=== PATIENT | female | born 1945 | race Caucasian/White ===

== ENCOUNTER 2020-01-16 17:18 | Emergency (ER) | payer MEDICARE, SELFPAY ==
[2020-01-16 17:53] VITALS: BP 145/74; PULSE 88; RESP 16; TEMP 36.8; O2SAT 95; BMI 16.6
[2020-01-16 18:17] LABS: Basophils # 0.1 10^3/uL (0.0-0.1); Basophils % 0.5 %; Eosinophils % 0.4 %; Hematocrit 38.7 % (37.0-47.0); Hemoglobin 11.9 g/dL (11.5-15.3); Lymphocytes # 1.9 10^3/uL (0.8-4.8); Lymphocytes % 16.8 %; Mean Corpuscular HGB Conc 30.7 g/dL (30.0-36.0); Mean Corpuscular Hemoglobin 27.2 pg (28.0-34.0); Mean Corpuscular Volume 88.6 fL (81-99); Mean Platelet Volume 10.2 fL (7.4-10.4); Monocytes # 0.6 10^3/uL (0.2-0.9); Monocytes % 5.2 %; Neutrophils # 8.8 10^3/uL (1.8-7.7); Neutrophils % 76.8 %; Nucleated Red Blood Cells % 0 %; Platelet Count 353 10^3/cmm (130-400); Red Blood Count 4.37 10^6/uL (4.1-5.3); Red Cell Distribution Width 14.8 % (12.1-15.1); White Blood Count 11.4 10^3/uL (4.0-10.0)
--- NOTE | 2020-01-16 18:27 | ED_ITS ---
Entered by Katie Mason, acting as scribe for Ankit Pope DO Jan 16, 2020 17:18 HPI - Dizziness General: Chief Complaint: Dizziness Stated Complaint: dizzy Time Seen by Provider: 01/16/20 18:36 History of Present Illness: HPI Narrative: 74 yo female presents with dizziness. Pt states that she can't stand up. Pt states that she feels like her ears get plugged up and she can't hear. Pt states that she has had this dizziness for about 1-2 weeks. Pt states that she feels tired all the time. Pts states that pt has had a change in weight and appetite. MD elicited complaint: dizziness Associated symptoms: Reports change in hearing and malaise; Denies chest pain, chills, headache(s), nausea, palpitations or vomiting Review of Systems Const: Reports: change in appetite, change in weight, fatigue and malaise; Denies: fever or chills Eyes: Denies: change in vision or blurry vision ENMT: Reports: Change in hearing; Denies: painful swallowing, nose bleeds, post nasal drip or facial/sinus pain Card: Denies: chest pain, palpitations, irregular heart rhythm or edema Resp: Denies: shortness of breath, productive cough, non-productive cough or wheezing GI: Denies: abdominal pain, nausea, vomiting or black tarry stool : Denies: painful urination, urinary frequency, urinary urgency or blood in urine Musc: Denies: neck pain Skin/Breast: Denies: rash, itching or redness Neuro: Reports: dizziness; Denies: headache or vertigo Psych: Denies: anxiety PFSH ED PFSH: Medical History (Updated 01/16/20 @ 20:14 by Ankit Pope DO) COPD (chronic obstructive pulmonary disease) Dementia GERD (gastroesophageal reflux disease) Surgical History (Updated 01/16/20 @ 18:42 by Katie Mason) History of lung surgery History of salpingo-oophorectomy Social History Smoking and tobacco status: current every day smoker Physical Exam Const: GENERAL APPEARANCE: well developed ORIENTATION/CONSCIOUSNESS: Yes oriented to person, Yes oriented to place and Yes oriented to time HENMT: COMMON NORMALS: normocephalic, external ears normal and external nose normal HEAD & SCALP: normocephalic; no scalp tenderness FACE & SINUS: normal facial exam NOSE: external nose normal and no nasal discharge EXTERNAL EAR: Yes external ears normal MOUTH: moist mucous membranes abnormal Details: parched THROAT: posterior oropharynx normal; no peritonsillar mass Eye: COMMON NORMALS: PERRL, EOMs intact bilaterally and conjunctivae normal EYELID: eyelids normal CONJUNCTIVA: Yes conjunctivae normal PUPIL: Yes PE RRL Neck/C-Spine: COMMON NORMALS: full ROM GENERAL: No tracheal deviation Chest: COMMONS NORMALS: inspection of chest normal CHEST: No tenderness Resp: COMMON NORMALS: clear to auscultation bilaterally EFFORT & INSPECTION: No tachypneic, No respiratory distress, No retractions, No uses accessory muscles and No tracheal deviation AUSCULTATION: clear to ausculta tion bilaterally, no rhonchi, no wheezes and lung sounds not diminished Cardio: COMMON NORMALS: regular rate and regular rhythm RATE: regular rate RHYTHM: regular rhythm HEART SOUNDS: no murmurs PERIPHERAL PULSES: radial pulses present GI: INSPECTION: No abdominal distension AUSCULTATION: No hyperactive bowel sounds and No hypoactive bowel sounds PALPATION: No guarding and No rigid PERCUSSION: no dullness to percussion and no tympanic to percussion Extremity: LEFT LOWER EXTREMITY: Yes lower leg Neuro: SENSORIUM/ORIENTATION: Yes oriented to person, Yes oriented to place and Yes oriented to time Psych: COMMON NORMALS: mental status grossly normal Skin: COMMON NORMALS: no rashes or lesions noted GENERAL SKIN EXAM: no rashes or lesions noted Course Vital Signs: Vital signs: Vital Signs Temperature 98.3 F 01/16/20 17:53 Pulse Rate 74 01/16/20 20:27 Respiratory Rate 18 01/16/20 20:27 Blood Pressure 162/69 01/16/20 20:27 Pulse Oximetry 98 01/16/20 20:27 MDM - Dizziness MDM Narrative: Medical decision making narrative: 74-year-old female with dizziness. Her neurological exam is essentially normal. Her CT of the head is normal. Chest x-ray is free of infiltrate. Her white blood cell count is 11.4. Other laboratory is benign. She is feeling better after IV fluid. This is likely BPPV with concomitant mild dehydration. She will be prescribed meclizine and told to follow-up. Lab Data: Labs: Lab Results 01/16/20 01/16/20 01/16/20 Range/Units 18:10 18:10 18:10 WBC 11.4 H (4.0-10.0) 10^3/ uL RBC 4.37 (4.1-5.3) 10^6/u L Hgb 11.9 (11.5-15.3) g/dL Hct 38.7 (37.0-47.0) % MCV 88.6 (81-99) fL MCH 27.2 L (28.0-34.0) pg MCHC 30.7 (30.0-36.0) g/dL RDW 14.8 (12.1-15.1) % Plt Count 353 (130-400) 10^3/c mm MPV 10.2 (7.4-10.4) fL Neut % (Auto) 76.8 % Lymph % (Auto) 16.8 % Reagan % (Auto) 5.2 % Eos % (Auto) 0.4 % Baso % (Auto) 0.5 % Neut # (Auto) 8.8 H (1.8-7.7) 10^3/u L Lymph # (Auto) 1.9 (0.8-4.8) 10^3/u L [place] # (Auto) 0.6 (0.2-0.9) 10^3/u L Eos # (Auto) 0.0 (0.0-0.8) 10^3/u L Baso # (Auto) 0.1 (0.0-0.1) 10^3/u L Nucleated RBC % (a uto) 0 % Nucleated RBCs # 0.0 /100WBC Sodium 134 L (136-145) mmol/L Potassium 4.5 (3.5-5.1) mmol/L Chloride 94 L (98-107) mmol/L Carbon Dioxide 29 (22-29) mmol/L Anion Gap 15.5 (5-19) BUN 18 (8-23) mg/dL Creatinine 0.9 (0.5-0.9) mg/dL Glucose 116 H (65-115) mg/dL Calculated Osmolal ity 275 L (285-295) mOsm/k g Calcium 10.3 (8.5-10.5) mg/dL Total Bilirubin 0.4 (0.15-1.2) mg/dL AST 21 (0-32) U/L ALT 9 (0-33) U/L Alkaline Phosphata se 103 (35-105) IU/L Creatine Kinase 38 (26-192) U/L Troponin T Gen 5 n g/L (0-10) ng/mL Total Protein 8.8 H (6.6-8.7) g/dL Albumin 3.8 (3.5-5.2) g/dL Globulin 5.0 H (1.3-4.6) g/dL Urine Color (Yellow) Urine Appearance (CLEAR) Urine pH (5-7) Ur Specific Gravit y (1.005-1.030) Urine Protein (Negative) Urine Glucose (UA) (Normal) Urine Ketones (Negative) Urine Blood (Negative) Urine Nitrate (Negative) Urine Bilirubin (NEGATIVE) Urine Urobilinogen (Negative) mg/dL Ur Leukocyte Candis ase (Negative) Urine RBC (0-2) /hpf Urine WBC (0-5) /hpf Ur Squamous Epith Cells (0-5) Urine Bacteria (NONE) Urine Mucus 01/16/20 01/16/20 Range/Units 18:10 18:48 WBC (4.0-10.0) 10^3/ uL RBC (4.1-5.3) 10^6/u L Hgb (11.5-15.3) g/dL Hct (37.0-47.0) % MCV (81-99) fL MCH (28.0-34.0) pg MCHC (30.0-36.0) g/dL RDW (12.1-15.1) % Plt Count (130-400) 10^3/c mm MPV (7.4-10.4) fL Neut % (Auto) % Lymph % (Auto) % Reagan % (Auto) % Eos % (Auto) % Baso % (Auto) % Neut # (Auto) (1.8-7.7) 10^3/u L Lymph # (Auto) (0.8-4.8) 10^3/u L Reagan # (Auto) (0.2-0.9) 10^3/u L Eos # (Auto) (0.0-0.8) 10^3/u L Baso # (Auto) (0.0-0.1) 10^3/u L Nucleated RBC % (a uto) % Nucleated RBCs # /100WBC Sodium (136-145) mmol/L Potassium (3.5-5.1) mmol/L Chloride (98-107) mmol/L Carbon Dioxide (22-29) mmol/L Anion Gap (5-19) BUN (8-23) mg/dL Creatinine (0.5-0.9) mg/dL Glucose (65-115) mg/dL Calculated Osmolal ity (285-295) mOsm/k g Calcium (8.5-10.5) mg/dL Total Bilirubin (0.15-1.2) mg/dL AST (0-32) U/L ALT (0-33) U/L Alkaline Phosphata se (35-105) IU/L Creatine Kinase (26-192) U/L Troponin T Gen 5 n g/L 10 (0-10) ng/mL Total Protein (6.6-8.7) g/dL Albumin (3.5-5.2) g/dL Globulin (1.3-4.6) g/dL Urine Color Yellow (Yellow) Urine Appearance Clear (CLEAR) Urine pH 7 (5-7) Ur Specific Gravit y 1.010 (1.005-1.030) Urine Protein Neg (Negative) Urine Glucose (UA) Norm (Normal) Urine Ketones Negative (Negative) Urine Blood Neg (Negative) Urine Nitrate Negative (Negative) Urine Bilirubin Neg (NEGATIVE) Urine Urobilinogen Norm (Negative) mg/dL Ur Leukocyte Candis ase Trace H (Negative) Urine RBC None (0-2) /hpf Urine WBC 10-15 H (0-5) /hpf Ur Squamous Epith Cells 0-4 H (0-5) Urine Bacteria Trace (NONE) Urine Mucus 1+ Discharge Plan Discharge Patient Disposition: Home, Self-Care Clinical Impression: Benign paroxysmal positional vertigo Qualifiers: Laterality: unspecified laterality Qualified Code(s): H81.10 - Benign paroxysmal vertigo, unspecified ear Condition: Stable Prescriptions: New meclizine 25 mg tablet 25 mg PO BID Qty: 60 RF: 0 No Action Tylenol 325 mg Tablet 325 mg PO QID PRN (Reason: Pain) RF: 0 Vitamin D2 1,250 mcg (50,000 unit) capsule 1,250 mcg PO DAILY RF: 0 Discharge Orders: Discharge Order (Routine); Ordered 01/16/20 Ordered By: Ankit Pope Referrals: Yazmin Oshea, PLATE COL[facility]ER-C [Primary Care Provider] - Discharge Diet: Advance as tolerated Discharge Activity: Increase activity as tolerated Patient Instructions: Benign Paroxysmal Positional Vertigo (ED), Dizziness (ED) Activity Restrictions/Additional Instructions: Return for mental status changes, fever, worsening symptoms despite treatment, other concerning symptoms. Discharge Date/Time: 01/16/20 20:37 Coding Level of Care Code ED Stablehand for Chg Fwd Exam Comprehensive The documentation recorded by the Marlon pinon Kialy, accurately reflects the service I personally performed and the decisions made by Niko gu Jeremy John, DO Jan 16, 2020 17:18
[2020-01-16 18:35] LABS: Alanine Aminotransferase 9 U/L (0-33); Albumin Level 3.8 g/dL (3.5-5.2); Alkaline Phosphatase 103 IU/L (35-105); Anion Gap 15.5 (5-19); Aspartate Amino Transferase 21 U/L (0-32); Blood Urea Nitrogen 18 mg/dL (8-23); Calcium 10.3 mg/dL (8.5-10.5); Carbon Dioxide 29 mmol/L (22-29); Chloride 94 mmol/L (98-107); Glucose 116 mg/dL (65-115); Osmolality Calculated 275 mOsm/kg (285-295); Potassium 4.5 mmol/L (3.5-5.1); Sodium 134 mmol/L (136-145); Total Bilirubin 0.4 mg/dL (0.15-1.2); Total Protein 8.8 g/dL (6.6-8.7)
--- NOTE | 2020-01-16 18:53 | XRR_ITS ---
PROCEDURE INFORMATION: Exam: XR Chest, 1 View Exam date and time: 01/16/2020 7:20 PM Age: 74 years old Clinical indication: Other: Dizzy TECHNIQUE: Imaging protocol: XR of the chest Views: 1 view. COMPARISON: CR Chest 1 [place] [id number] 03/13/2016 6:20 PM FINDINGS: Lungs: Advanced COPD/chronic bronchitis/emphysema. Evidence of antecedent granulomatous disease. Right upper lobe scar atelectasis. Surgical clips left lung apex. Pleural space: Unremarkable. No pleural effusion. No pneumothorax. Heart/Mediastinum: Cardiac structures in configuration with arterial sclerosis. Bones/joints: Levo scoliotic curvature of the spine. Osteopenia/osteoporosis. Other findings: No significant overall change since 03/13/2016. XR/XR chest 1V portable [id number] IMPRESSION: 1. Chronic lung disease as detailed in text above. 2. No radiographic evidence of active or acute cardiopulmonary process.
--- NOTE | 2020-01-16 18:53 | CTR_ITS ---
PROCEDURE INFORMATION: Exam: CT Head Without Contrast Exam date and time: 01/16/2020 6:59 PM Age: 74 years old Clinical indication: Patient HX: C/O intermittent episodes of dizziness; Additional info: Dizzy TECHNIQUE: Imaging protocol: Computed tomography of the head without contrast. Total DLP: 690.22 mGy-cm Radiation optimization: All CT scans at this facility use at least one of these dose optimization techniques: automated exposure control; mA and/or kV adjustment per patient size (includes targeted exams where dose is matched to clinical indication); or iterative reconstruction. COMPARISON: CT head wo con* [id number] 03/13/2016 6:28 PM FINDINGS: Brain: No visible evidence of active or acute intracranial pathologic process. Ventricles: Unremarkable for age. No ventriculomegaly. Bones/joints: Unremarkable. No acute fracture. Sinuses: Evidence of chronic right sphenoid sinusitis. No visible air-fluid level to suggest active paranasal sinus disease, however. Mastoid air cells: Visualized mastoid air cells are well aerated. Soft tissues: Unremarkable. Vasculature: Mild cerebral arterial sclerosis. CT/CT head wo con* [id number] IMPRESSION: No visible evidence of active or acute intracranial pathologic process. Radiation Dose CTDIVOL = (mGy): DLP = 690.22 (mGy-cm)
[2020-01-16 19:05] LABS: Add Urine Microscopic? YES; Bilirubin Urine Neg (NEGATIVE); Blood Urine Neg (Negative); Glucose Urine UA Norm (Normal); Ketones Urine Negative (Negative); Leukocyte Esterase Urine Trace (Negative); Nitrate Urine Negative (Negative); Protein Urine Neg (Negative); Urine Appearance Clear (CLEAR); Urine Color Yellow (Yellow); Urobilinogen Urine Norm (Negative); pH Urine 7 (5-7)
[2020-01-16 19:08] LABS: Bacteria Urine TRACE; Mucus Urine 1+; Squamous Epithelial Cell Urine 0-4 (0-5)
[2020-01-16 19:09] LABS: Add Urine Culture? No
[2020-01-16] MEDS: sodium chloride 0.9% 1,000 ML 999 ML IV (19:31)
[2020-01-16 19:48] LABS: Creatine Phosphokinase 38 U/L (26-192)
[2020-01-16 19:49] LABS: Troponin T (5th) Once 10 ng/mL (0-10)
[2020-01-16] MEDS: meclizine 25 mg tablet PO (20:18)
[2020-01-16 20:27] VITALS: BP 162/69; PULSE 74; RESP 18; O2SAT 98
== END 2020-01-16 20:37 | disposition home or self-care (01) ==
PROVIDERS: Emergency Medicine; Emergency Provider Emergency Medicine; Family Provider Nurse Practitioner; PCP Nurse Practitioner
DX: H81.10 Benign paroxysmal vertigo, unspecified ear (principal); J44.9 Chronic obstructive pulmonary disease, unspecified; F03.90 Unspecified dementia, unspecified severity, without behavioral disturbance, psychotic disturbance, mood disturbance, and anxiety; F17.200 Nicotine dependence, unspecified, uncomplicated
CPT/HCPCS: 12345; 70450; 71045; 80053; 81001; 82550; 84484; 85025; 96360; 99281; 99282; 99283; A9270; J7030; J8597

== ENCOUNTER 2020-05-01 11:56 | Observation (INO) | payer MEDICARE, SELFPAY ==
[2020-05-01] VITALS (10 sets, daily range): BP systolic 103–152; BP diastolic 66–84; PULSE 60–134; RESP 12–20; TEMP 36.4–36.6; O2SAT 94–98; BMI 15.0
--- NOTE | 2020-05-01 12:26 | W.ED.DIZZY ---
HPI - Dizziness General: Chief Complaint: Dizziness Stated Complaint: DIZZY, CHEST PAIN Time Seen by Provider: 05/01/20 12:15 History of Present Illness: HPI Narrative: 74-year-old female some moderate dementia comes in complaining some chest pressure and arm pain she had it earlier this morning is completely resolved now said it radiated into her arms not into her neck or jaw she was shortness of breath had some shortness of breath with it. In the exam room she is has bigeminy but is a heart rate in the 60s by palpation the monitor showing 120s 130s. She denies any or GI symptoms no abdominal pain she is not having any further chest pain at this time. She has a history of COPD she states she quit smoking today and is going to stay quit. Her daughters at the bedside assisting with her because of her dementia. MD elicited complaint: dizziness, lightheadedness and other (chest pain) Severity: moderate Exacerbating factors: nothing Relieving factors: nothing Associated symptoms: Reports no associated symptoms, chest pain, diaphoresis, fevers/chills and palpitations; Denies change in hearing, chills, cough, ear discharge, ear pressure, nausea or vomiting Associated neuro symptoms: Reports no associated symptoms Review of Systems Const: Reports: diaphoresis; Denies: chills ENMT: Denies: ear discharge or change in hearing Card: Reports: chest pain and palpitations Resp: Denies: dyspnea, productive cough or non-productive cough GI: Denies: abdominal pain, nausea, vomiting, hematemesis, coffee ground emesis, diarrhea, constipation, bloating, hematochezia or melena : Denies: flank pain, difficulty voiding, dysuria, urinary frequency or urinary urgency Skin/Breast: Denies: rash or pruritus PFSH ED PFSH: Medical History COPD (chronic obstructive pulmonary disease) Dementia GERD (gastroesophageal reflux disease) Tobacco dependency Surgical History History of lung surgery History of salpingo-oophorectomy Social History Smoking and tobacco status: current every day smoker cigarettes Packs smoked per day: 0.5 Years cigarettes smoked: 60 Alcohol intake: never Substance/Drug Use: never Lives independently: Yes Household members: spouse Marital status: Current occupational status: retired History of recent travel: No Current gender identity: Female Special ngai needs: No Agree to transfusion: Yes Physical Exam Const: COMMON NORMALS: no acute distress GENERAL APPEARANCE: cooperative and comfortable ORIENTATION/CONSCIOUSNESS: Yes awake HENMT: COMMON NORMALS: normocephalic, atraumatic, hearing grossly normal bilaterally, external ears normal, EAC's normal, TM's normal bilaterally, Normal nasal mucous membranes and turbinates present, moist oral mucous membranes and oropharynx normal HEAD & SCALP: normocephalic and atraumatic NOSE: Normal nasal mucous membranes and turbinates present EXTERNAL EAR: Yes external ears normal EXTERNAL AUDITORY CANAL: EAC's normal TYMPANIC MEMBRANE: TM's normal bilaterally Eye: COMMON NORMALS: Equal, round and reactive pupils present, EOMs intact bilaterally, conjunctivae normal and no scleral icterus CONJUNCTIVA: Yes conjunctivae normal PUPIL: Yes Equal, round and reactive pupils present Neck/C-Spine: COMMON NORMALS: full ROM, no lymphadenopathy, supple and no JVD Lymph: LYMPHATIC: no lymphadenopathy noted and no lymphedema noted Resp: COMMON NORMALS: normal respiratory effort, No retractions and No use of accessory muscles AUSCULTATION: wheezes and bronchovesicular breath sounds (Bilaterally at the bases) on the right and on the left Cardio: COMMON NORMALS: no JVD, regular rate, regular rhythm and No murmurs present (Cardio) RATE: regular rate RHYTHM: regular rhythm OTHER: Noted that on the vital signs of record heart rates in the 120s however when palpated at the bedside her heart rate is actually in the 60s and 70s she is intermittently in bigeminy and the monitor was reading it is to QRS complexes and doubling the heart rate GI: COMMON NORMALS: Soft to palpation and No hepatosplenomegaly present AUSCULTATION: Yes normoactive bowel sounds PALPATION: Yes Soft to palpation, No Tenderness to palpation present (GI), No Guarding due to palpation present (GI) and Yes No hepatosplenomegaly present Extremity: COMMON NORMALS: normal to inspection, capillary refill normal, no clubbing, cyanosis or edema, no calf tenderness and no pedal edema Skin: COMMON NORMALS: no rashes or lesions noted GENERAL SKIN EXAM: no rashes or lesions noted Course Vital Signs: Vital signs: Vital Signs Temperature 97.8 F 05/01/20 11:57 Pulse Rate 95 05/01/20 17:42 Respiratory Rate 17 05/01/20 17:42 Blood Pressure 152/66 05/01/20 17:42 Pulse Oximetry 96 05/01/20 17:42 MDM - Dizziness MDM Narrative: Medical decision making narrative: CT shows multilobar pneumonia in her dementia patient with COPD and not believe she is safe to go home despite her relatively good vitals and normal white count. Suspect her pneumonia will worsen significantly. We will also swab her for Kovic discussed with Dr. Carlos. Lab Data: Attestation: I reviewed the patient's lab results. Labs: Lab Results 05/01/20 05/01/20 05/01/20 Range/Units 13:18 13:18 13:18 WBC 8.8 (4.0-10.0) 10^3/ uL RBC 3.84 L (4.1-5.3) 10^6/u L Hgb 10.9 L (11.5-15.3) g/dL Hct 35.9 L (37.0-47.0) % MCV 93.5 (81-99) fL MCH 28.4 (28.0-34.0) pg MCHC 30.4 (30.0-36.0) g/dL RDW 14.7 (12.1-15.1) % Plt Count 331 (130-400) 10^3/c mm MPV 9.8 (7.4-10.4) fL Neut % (Auto) 71.6 % Lymph % (Auto) 18.9 % [place] % (Auto) 7.6 % Eos % (Auto) 0.6 % Baso % (Auto) 0.7 % Neut # (Auto) 6.3 (1.8-7.7) 10^3/u L Lymph # (Auto) 1.7 (0.8-4.8) 10^3/u L [place] # (Auto) 0.7 (0.2-0.9) 10^3/u L Eos # (Auto) 0.1 (0.0-0.8) 10^3/u L Baso # (Auto) 0.1 (0.0-0.1) 10^3/u L Nucleated RBC % (a uto) 0 % Nucleated RBCs # 0.0 /100WBC Sodium 138 (136-145) mmol/L Potassium 4.9 (3.5-5.1) mmol/L Chloride 99 (98-107) mmol/L Carbon Dioxide 28 (22-29) mmol/L Anion Gap 15.9 (5-19) BUN 14 (8-23) mg/dL Creatinine 0.7 (0.5-0.9) mg/dL Glucose 98 (65-115) mg/dL Calculated Osmolal ity 282 L (285-295) mOsm/k g Calcium 9.2 (8.5-10.5) mg/dL Total Bilirubin 0.3 (0.15-1.2) mg/dL AST 20 (0-32) U/L ALT 7 (0-33) U/L Alkaline Phosphata se 91 (35-105) IU/L Troponin T Baselin e 9 (0-10) ng/L Troponin T 120 Min santhosh (0-10) ng/L Delta Troponin T (0-10) ABS# Total Protein 6.8 (6.6-8.7) g/dL Albumin 3.2 L (3.5-5.2) g/dL Globulin 3.6 (1.3-4.6) g/dL Urine Color (Yellow) Urine Appearance (CLEAR) Urine pH (5-7) Ur Specific Gravit y (1.005-1.030) Urine Protein (Negative) Urine Glucose (UA) (Normal) Urine Ketones (Negative) Urine Blood (Negative) Urine Nitrate (Negative) Urine Bilirubin (NEGATIVE) Urine Urobilinogen (Negative) mg/dL Ur Leukocyte Candis ase (Negative) 05/01/20 05/01/20 Range/Units 14:16 15:22 WBC (4.0-10.0) 10^3/ uL RBC (4.1-5.3) 10^6/u L Hgb (11.5-15.3) g/dL Hct (37.0-47.0) % MCV (81-99) fL MCH (28.0-34.0) pg MCHC (30.0-36.0) g/dL RDW (12.1-15.1) % Plt Count (130-400) 10^3/c mm MPV (7.4-10.4) fL Neut % (Auto) % Lymph % (Auto) % [place] % (Auto) % Eos % (Auto) % Baso % (Auto) % Neut # (Auto) (1.8-7.7) 10^3/u L Lymph # (Auto) (0.8-4.8) 10^3/u L [place] # (Auto) (0.2-0.9) 10^3/u L Eos # (Auto) (0.0-0.8) 10^3/u L Baso # (Auto) (0.0-0.1) 10^3/u L Nucleated RBC % (a uto) % Nucleated RBCs # /100WBC Sodium (136-145) mmol/L Potassium (3.5-5.1) mmol/L Chloride (98-107) mmol/L Carbon Dioxide (22-29) mmol/L Anion Gap (5-19) BUN (8-23) mg/dL Creatinine (0.5-0.9) mg/dL Glucose (65-115) mg/dL Calculated Osmolal ity (285-295) mOsm/k g Calcium (8.5-10.5) mg/dL Total Bilirubin (0.15-1.2) mg/dL AST (0-32) U/L ALT (0-33) U/L Alkaline Phosphata se (35-105) IU/L Troponin T Baselin e (0-10) ng/L Troponin T 120 Min santhosh 8.90 (0-10) ng/L Delta Troponin T -0.10 L (0-10) ABS# Total Protein (6.6-8.7) g/dL Albumin (3.5-5.2) g/dL Globulin (1.3-4.6) g/dL Urine Color Yellow (Yellow) Urine Appearance Clear (CLEAR) Urine pH 7 (5-7) Ur Specific Gravit y 1.015 (1.005-1.030) Urine Protein Neg (Negative) Urine Glucose (UA) Norm (Normal) Urine Ketones Negative (Negative) Urine Blood Neg (Negative) Urine Nitrate Negative (Negative) Urine Bilirubin Neg (NEGATIVE) Urine Urobilinogen Neg (Negative) mg/dL Ur Leukocyte Candis ase Negative (Negative) Discharge Plan Discharge Patient Disposition: Admitted As Inpatient Admit Provider: Bony Carlos Clinical Impression: Pneumonia, COPD (chronic obstructive pulmonary disease), Dementia Condition: Stable Interventions: ED Discharge Assessment Last Done: 05/01/20 17:42 ED Charges Last Done: 05/01/20 17:42 Coding Level of Care Code ED Ski Binding Fitter And Repairer for Chg Fwd Exam Comprehensive
--- NOTE | 2020-05-01 12:30 | ECG_ITS ---
[facility] Test Date: 2020-05-01 Pat Name: Hina Gomez Department: Room: Gender: Female Manager Skilled: : 1945 Requested By: Kade Feldman Order Number: [id number] Luis Felipe MD: Karis Perez M.D. Measurements Intervals [place] Rate: 66 P: 73 WV: 168 QRS: -52 QRSD: 126 T: 95 QT: 446 QTc: 469 Interpretive Statements SINUS RHYTHM POSSIBLE LEFT ATRIAL ENLARGEMENT [-0.1mV P WAVE IN V1/V2] LEFT AXIS DEVIATION [QRS AXIS < -30] LEFT BUNDLE BRANCH BLOCK Compared to ECG 03/13/2016 17:50:21 Left-axis deviation now present Left bundle-branch block now present Intraventricular conduction delay no longer present Myocardial infarct finding no longer present Electronically Signed On 05-01-2020 18:27:21 CDT by Karis Perez M.D. [id number]
--- NOTE | 2020-05-01 12:31 | XRR_ITS ---
PROCEDURE INFORMATION: Exam: XR Chest, 1 View Exam date and time: 05/01/2020 12:32 PM Age: 74 years old Clinical indication: Cough and dyspnea; Additional info: Dyspnea/cough TECHNIQUE: Imaging protocol: XR of the chest Views: 1 view. COMPARISON: No relevant prior studies available. FINDINGS: Lungs: Emphysema Coarse interstitial pattern in the mid lungs bilaterally. Somewhat reticular nodular nature. Opacity right mid lung laterally. Correlate with CT chest. Pleural space: Unremarkable. No pleural effusion. No pneumothorax. Heart/Mediastinum: Unremarkable. No cardiomegaly. Bones/joints: Unremarkable. XR/XR chest 1V portable [id number] IMPRESSION: Coarse interstitial pattern in the mid lungs bilaterally. Somewhat reticular nodular nature. Opacity right mid lung laterally. Correlate with CT chest. Severe emphysema
--- NOTE | 2020-05-01 12:40 | ECG_ITS ---
[facility] Test Date: 2020-05-01 Pat Name: Hian Gomez Department: Room: Gender: Female Riprap Worker: : 1945 Requested By: Kade Feldman Order Number: [id number] Luis Felipe MD: Karis Perez M.D. Measurements Intervals [place] Rate: 66 P: 73 AR: 168 QRS: -52 QRSD: 126 T: 95 QT: 446 QTc: 469 Interpretive Statements SINUS RHYTHM POSSIBLE LEFT ATRIAL ENLARGEMENT [-0.1mV P WAVE IN V1/V2] LEFT AXIS DEVIATION [QRS AXIS < -30] LEFT BUNDLE BRANCH BLOCK [120+ ms QRS DURATION, 80+ ms Q/S IN V1/V2, 85+ ms R IN I/aVL/V5/V6] Compared to ECG 03/13/2016 17:50:21 Left-axis deviation now present Left bundle-branch block now present Intraventricular conduction delay no longer present Myocardial infarct finding no longer present Electronically Signed On 05-01-2020 18:27:45 CDT by Karis Perez M.D. [id number]
[2020-05-01 13:24] LABS: Basophils # 0.1 10^3/uL (0.0-0.1); Basophils % 0.7 %; Eosinophils # 0.1 10^3/uL (0.0-0.8); Eosinophils % 0.6 %; Hematocrit 35.9 % (37.0-47.0); Hemoglobin 10.9 g/dL (11.5-15.3); Lymphocytes # 1.7 10^3/uL (0.8-4.8); Lymphocytes % 18.9 %; Mean Corpuscular HGB Conc 30.4 g/dL (30.0-36.0); Mean Corpuscular Hemoglobin 28.4 pg (28.0-34.0); Mean Corpuscular Volume 93.5 fL (81-99); Mean Platelet Volume 9.8 fL (7.4-10.4); Monocytes # 0.7 10^3/uL (0.2-0.9); Monocytes % 7.6 %; Neutrophils # 6.3 10^3/uL (1.8-7.7); Neutrophils % 71.6 %; Nucleated Red Blood Cells % 0 %; Platelet Count 331 10^3/cmm (130-400); Red Blood Count 3.84 10^6/uL (4.1-5.3); Red Cell Distribution Width 14.7 % (12.1-15.1); White Blood Count 8.8 10^3/uL (4.0-10.0)
[2020-05-01 13:41] LABS: Alanine Aminotransferase 7 U/L (0-33); Albumin Level 3.2 g/dL (3.5-5.2); Alkaline Phosphatase 91 IU/L (35-105); Anion Gap 15.9 (5-19); Blood Urea Nitrogen 14 mg/dL (8-23); Calcium 9.2 mg/dL (8.5-10.5); Carbon Dioxide 28 mmol/L (22-29); Chloride 99 mmol/L (98-107); Creatinine Clr Calc Pharmacy 39.1575; Globulin 3.6 g/dL (1.3-4.6); Glucose 98 mg/dL (65-115); Osmolality Calculated 282 mOsm/kg (285-295); Potassium 4.9 mmol/L (3.5-5.1); Sodium 138 mmol/L (136-145); Total Bilirubin 0.3 mg/dL (0.15-1.2); Total Protein 6.8 g/dL (6.6-8.7); Troponin(5th) Baseline 9 ng/L (0-10)
[2020-05-01 13:50] LABS: Aspartate Amino Transferase 20 U/L (0-32)
--- NOTE | 2020-05-01 14:28 | CT_ITS ---
WS: [id number] CT CHEST ANGIOGRAPHY WITH REFORMATS HISTORY: dyspnea TECHNIQUE: Contiguous axial images are obtained through the chest during arterial injection of intrav enous contrast. Images are reconstructed to evaluate the pulmonary arteries. MIP imaging also reviewe d. All CT scans at [facility] use at least one of these dose optimization techniques: aut omated exposure control; mA and/or kV adjustment per patient size (includes targeted exams where dose is matched to clinical indication); or iterative reconstruction. CONTRAST: Omnipaque 300; 75 mL IV. DLP: 329.47 mGy.cm COMPARISON: 08/12/2012 Very good opacification of the pulmonary arteries. No filling defects or pulmonary embolism. Moderate atherosclerosis aorta. Severe emphysema. Significant progression of bilateral pulmonary opacifications and consolidations. T here is significant tree-in-bud opacification with areas of subsegmental atelectasis involving all lo bes. There are areas of consolidation and groundglass attenuation. No pericardial or pleural effusion . Extensive mediastinal and hilar adenopathy. The largest lymph nodes at the RIGHT hilum with a maxim um diameter of 18 mm. Small hiatal hernia. Incompletely visualized large LEFT renal cyst. CT/CT angio chest PE protcl [id number] IMPRESSION: 1. No pulmonary embolism. 2. Multifocal, multi lobar opacifications are likely pneumonia. Underlying javier plasm cannot be excluded. There are additional areas of atelectasis with severe emphysema. After patient's acute illness resolves follow-up CT is recommended in 4-6 weeks to be sure there is no underlying neoplasm. 3. Mediastinal and hilar lymphadenopathy is probably reactive.
[2020-05-01 14:39] LABS: Add Urine Microscopic? NO
--- NOTE | 2020-05-01 14:40 | ECG_ITS ---
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 Measurements Intervals [place] Rate: 54 P: 56 TX: 174 QRS: -26 QRSD: 135 T: 97 QT: 487 QTc: 464 Interpretive Statements SINUS BRADYCARDIA INTRAVENTRICULAR CONDUCTION DELAY [130+ ms QRS DURATION] Compared to ECG 05/01/2020 12:14:02 Intraventricular conduction delay now present Sinus rhythm no longer present Left-axis deviation no longer present Left bundle-branch block no longer present Electronically Signed On 05-01-2020 18:55:38 CDT by Karis Perez M.D. [id number]
[2020-05-01 14:42] LABS: Bilirubin Urine Neg (NEGATIVE); Blood Urine Neg (Negative); Glucose Urine UA Norm (Normal); Ketones Urine Negative (Negative); Nitrate Urine Negative (Negative); Protein Urine Neg (Negative); Specific Gravity, Urine 1.015 (1.005-1.030); Urine Appearance Clear (CLEAR); Urine Color Yellow (Yellow); pH Urine 7 (5-7)
[2020-05-01 14:43] LABS: Leukocyte Esterase Urine Negative (Negative); Urobilinogen Urine Neg (Negative)
[2020-05-01] MEDS: iohexol 350 mg/mL 100 mL Btl IV (15:00)
[2020-05-01] MEDS: cefTRIAXone 1,000 MG in sodium chloride 0.9% (plus) 50 ML 100 MG IV (16:13)
[2020-05-01] MEDS: azithromycin 500 MG in sodium chloride 0.9% 250 ML 250 MG IV (16:24)
--- NOTE | 2020-05-01 17:20 | PM.HP ---
Providers/Chief Complaint Admitting Physician: Bony Carlos MD Primary Care Provider: HE Rangel Chief Complaint: DIZZY, CHEST PAIN History of Present Illness Hina Gomez is a 74 year old female who presents to the emergency department with history of some dizziness. She reports occasional cough. There is some notes of some chest discomfort as well and apparently in the emergency department she had some bigeminy. EKG she demonstrated intraventricular conduction delay. History is difficult secondary to her underlying dementia. I called to talk with her family, but none of the numbers connect at this time. She specifically denies any fever. I am not for sure if she has had exposure to any COVID. No hemoptysis or productivity to her cough. L Review of Systems General: Reports: 10 or more systems reviewed and unremarkable except in HPI and below Const: Denies: fever(s) or chills Eyes: Denies: change in vision ENMT: Denies: throat pain Card: Reports: chest pain Resp: Reports: non-productive cough; Denies: dyspnea GI: Denies: abdominal pain : Denies: flank pain Musc: Denies: neck pain Skin/Breast: Denies: rash Neuro: Reports: dizziness and other (Longstanding memory problems); Denies: headache(s) Psych: Denies: anxiety Endo: Denies: polyuria Alonzo/Lymph: Denies: easy bruising All/Imm: Denies: urticaria Medications/Allergies Home Medications Medication Instructions Recorded Confirmed Last Taken Type donepezil 10 mg PO DAILY 05/01/20 05/01/20 05/01/20 History meclizine 25 mg PO BID PRN 05/01/20 05/01/20 05/01/20 History Allergies Allergy/AdvReac Type Severity Reaction Status Date / Time No Known Allergies Allergy Verified 05/01/20 08:14 PFSH Acute PFSH: Medical History (Updated 05/01/20 @ 17:28 by Bony Carlos MD) COPD (chronic obstructive pulmonary disease) Dementia GERD (gastroesophageal reflux disease) Tobacco dependency Surgical History History of lung surgery History of salpingo-oophorectomy Social History (Updated 05/01/20 @ 17:24 by Bony Carlos MD) Smoking and tobacco status: current every day smoker cigarettes Packs smoked per day: 0.5 Years cigarettes smoked: 60 Alcohol intake: never Substance/Drug Use: never Lives independently: Yes Household members: spouse Marital status: Current occupational status: retired History of recent travel: No Current gender identity: Female Special nagi needs: No Agree to transfusion: Yes Supplemental [facility] Information: Patient reports no significant family history. Vitals/I&O/Wt Last Vital Signs Temp 97.8 F 05/01/20 11:57 Pulse 60 05/01/20 16:26 Resp 19 H 05/01/20 16:26 BP 130/72 05/01/20 16:26 Pulse Ox 97 05/01/20 16:26 05/01/20 05/01/20 05/01/20 06:59 14:59 22:59 Intake Total 50 / 50 Balance 50 / 50 Weight last 48 hrs Weight 40.823 kg Physical Exam Narrative: EXAM NARRATIVE: General exam demonstrates a white female, in no apparent distress. She reports the dizziness she has had has passed. HEENT: Pupils equally round. Oropharynx clear. Neck is supple no lymphadenopathy or thyromegaly Cardiovascular regular rate and rhythm, 2/6 systolic murmur Lungs a few expiratory wheezes, and coarse breath sounds throughout. Abdomen is soft positive bowel sounds. No obvious organomegaly was deferred Extremities no cyanosis clubbing or edema. Pulses intact. Skin no rash Neuro no focal deficits but confusion is present. Patient is able to carry on a conversation, but cannot remember occasional things. From my understanding this is baseline. Data : 05/01/20 13:18 05/01/20 13:18 Other data: EKG demonstrates sinus bradycardia with a heart rate of 54, intraventricular conduction delay, poor R wave progression LFTs are normal. Urinalysis is negative. Troponin is normal at baseline. A&P Assessment and plan (1) Dizziness: Etiology uncertain. Apparently patient has had this chronically and takes meclizine for it on occasion. She denies any dizziness now. In the emergency department she has an interventricular conduction delay, and some bradycardia on her EKG. They have also witnessed some bigeminy. Continue telemetry Serial troponins Echocardiogram Avoid beta-blockers or any rate controlling medications Check TSH Check magnesium Status: Acute (2) Bradycardia: See above Status: Acute (3) Pneumonia: Levaquin IV Sputum culture Many of the changes on her x-ray may be chronic Check procalcitonin COVID and influenza testing obtained Status: Acute (4) COPD exacerbation: At this point I do not believe she needs steroids Nebulized treatments every 4 hours Initiate budesonide Status: Acute (5) Tobacco dependency: Encourage cessation, for 3 to 5 minutes during my visit with her Status: Acute (6) Anemia: Check anemia panel, stool Hemoccult Monitor hemoglobin closely Status: Acute Additional A&P Information Dementia, continue her home medication History of GERD Multiple other medical problems as outlined in her past medical history Observation. If all testing is negative high likelihood of discharge home tomorrow Lovenox for DVT prophylaxis Full code Attestations Medical Necessity Statement*: Will need less than 2 midnight stay for evaluation of possible pneumonia, dizziness, cardiac arrhythmia Coding Level of Care Code Acute Administrative Receptionist for [facility] Fwd Diagnoses Dizziness R42 Bradycardia R00.1 Pneumonia J18.9 COPD exacerbation J44.1 Tobacco dependency F17.200 Anemia D64.9
--- NOTE | 2020-05-01 17:35 | PC.NURSE ---
COVID swab collected and sent to lab at this time.
--- NOTE | 2020-05-01 18:40 | ECG_ITS ---
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 Measurements Intervals [place] Rate: 72 P: 69 MO: 182 QRS: -48 QRSD: 132 T: 104 QT: 440 QTc: 484 Interpretive Statements SINUS RHYTHM WITH SINUS ARRHYTHMIA INTRAVENTRICULAR CONDUCTION DELAY [130+ ms QRS DURATION] POSSIBLE ANTERIOR MYOCARDIAL INFARCTION [30 ms Q WAVE IN V3/V4, OR R < 0.2 mV IN V4], OF INDETERMINATE AGE INFERIOR MYOCARDIAL INFARCTION [40+ ms Q WAVE AND/OR ST/T ABNORMALITY IN II/aVF], OF INDETERMINATE AGE Compared to ECG 05/01/2020 16:03:53 Myocardial infarct finding now present Sinus bradycardia no longer present Electronically Signed On 05-03-2020 0:01:19 CDT by Hossein Mejia M.D. [id number]
[2020-05-01] MEDS: sodium chloride 0.9% 1,000 ML 75 ML IV (18:54)
[2020-05-01] MEDS: levofloxacin-dextrose 5 % 750 MG/150 ML PREMIX 100 MG IV (18:54)
[2020-05-01] MEDS: enoxaparin 40 mg/0.4 mL Syringe SUBCUT (18:54)
--- NOTE | 2020-05-01 19:34 | PC.NURSE ---
Received bedside report from Ree Walker RN. Patient sitting on the edge of bed with clothes on. Patient refusing to put on gown at this time. Patient stated, I am not sure why I am here. I feel fine. . Admission completed as documented.
[2020-05-01 19:43] LABS: Troponin 5 6HR 8.95 ng/L (0-10)
[2020-05-01 19:45] LABS: Troponin 5 6HR Delta -0.05 ng/L (0-12)
[2020-05-01 20:12] LABS: Influenza A by IFA Negative (Negative); Influenza B by IFA Negative (Negative)
[2020-05-01 22:22] LABS: Add On to Lab Order(s) Added
[2020-05-02] VITALS (8 sets, daily range): BP systolic 105–123; BP diastolic 50–93; PULSE 65–85; RESP 12–22; TEMP 36.4–36.8; O2SAT 94–97
--- NOTE | 2020-05-02 03:58 | PC.NURSE ---
Found patient to have accidentally removed existing IV from left AC. Catheter found intact. No s/s of bleeding observed. Initiated new 20g IV to right forearm with 1 one attempt. Patient tolerated well.
[2020-05-02 04:41] LABS: Basophils # 0.1 10^3/uL (0.0-0.1); Basophils % 0.6 %; Eosinophils # 0.1 10^3/uL (0.0-0.8); Eosinophils % 1.5 %; Hematocrit 37.5 % (37.0-47.0); Hemoglobin 11.6 g/dL (11.5-15.3); Lymphocytes # 2.2 10^3/uL (0.8-4.8); Lymphocytes % 25.9 %; Mean Corpuscular HGB Conc 30.9 g/dL (30.0-36.0); Mean Corpuscular Hemoglobin 28.3 pg (28.0-34.0); Mean Corpuscular Volume 91.5 fL (81-99); Mean Platelet Volume 10.2 fL (7.4-10.4); Monocytes # 0.7 10^3/uL (0.2-0.9); Monocytes % 7.7 %; Neutrophils # 5.5 10^3/uL (1.8-7.7); Neutrophils % 63.8 %; Nucleated Red Blood Cells % 0 %; Platelet Count 370 10^3/cmm (130-400); Red Cell Distribution Width 14.6 % (12.1-15.1); White Blood Count 8.6 10^3/uL (4.0-10.0)
[2020-05-02 04:54] LABS: Procalcitonin 0.05 ng/mL (0-0.5); Thyroid Stimulating Hormone 0.51 uIU/mL (0.27-4.20); Vitamin B12 428 pg/mL (232-1245)
--- NOTE | 2020-05-02 05:00 | XR_ITS ---
WS: [id number] PORTABLE CHEST HISTORY: pneumonia COMPARISON: 05/01/2020 Severe pulmonary hyperinflation with chronic emphysema. Multifocal and multi lobar areas of atelectas is and airspace disease. No definite improvement as compared to the prior examination. No pleural eff usion or pneumothorax. Cardiac size: Normal. Mediastinum/Aorta: Normal mediastinum. Osteopenia. XR/XR chest 1V portable 16800 IMPRESSION: Severe chronic emphysema with multi focal areas of atelectasis.
[2020-05-02 05:07] LABS: Ferritin 152 ng/mL (15-150); Iron 30 ug/dL (37-145); Magnesium 2.1 mg/dL (1.7-2.3)
[2020-05-02 05:11] LABS: Alanine Aminotransferase 7 U/L (0-33); Albumin Level 3.4 g/dL (3.5-5.2); Alkaline Phosphatase 96 IU/L (35-105); Anion Gap 17.2 (5-19); Aspartate Amino Transferase 18 U/L (0-32); Blood Urea Nitrogen 20 mg/dL (8-23); Calcium 9.2 mg/dL (8.5-10.5); Carbon Dioxide 28 mmol/L (22-29); Chloride 98 mmol/L (98-107); Globulin 4.4 g/dL (1.3-4.6); Glucose 89 mg/dL (65-115); Osmolality Calculated 284 mOsm/kg (285-295); Potassium 4.2 mmol/L (3.5-5.1); Sodium 139 mmol/L (136-145); Total Bilirubin 0.3 mg/dL (0.15-1.2); Total Protein 7.8 g/dL (6.6-8.7)
[2020-05-02 06:11] LABS: Folate Level > 20.0 ng/mL (4.8-37.3)
[2020-05-02 06:12] LABS: Percent Saturation 13.6 % (20-50); Total Iron Binding Capacity 219 mcg/dl; Unsaturated Iron Binding 189 ug/dL (112-347)
--- NOTE | 2020-05-02 07:00 | USCV_ITS ---
Hina Gomez Age: 74 Gender: F : 1945 Exam Date: 05/02/2020 05:52 Ordering Phys: Bony Carlos MD Technologist: Carmen Hernandez Exam Location: [facility] Indication: ARRHYTHMIA BP: 119 / 79 HR: Rhythm: Sinus Technical Quality: Adequate MEASUREMENTS (Male / Female) Normal Values 2D ECHO LV Diastolic Diameter PLAX 3.3 cm 4.2 - 5.9 / 3.9 - 5.3 cm LV Systolic Diameter PLAX 2.2 cm LV Chamber Size 2.1 cm IVS Diastolic Thickness 1.2 cm 0.6 - 1.0 / 0.6 - 0.9 cm IVS Systolic Thickness 1.1 cm LVPW Diastolic Thickness 1.6 cm 0.6 - 1.0 / 0.6 - 0.9 cm LVPW Systolic Thickness 1.8 cm RV Chamber Size 3.2 cm LVOT Diameter 2.1 cm LV Ejection Fraction 2D Teich 61.8 % LV Ejection Fraction MOD 2C 50.8 % LV Ejection Fraction 2C AL 50.5 % LA Diameter 3.5 cm LA Width 2.4 cm LA Height 3.0 cm RA Width 2.7 cm RA Height 2.4 cm Aorta at Sinotubular Diameter 2.5 cm M-MODE LV Diastolic Diameter MM 2.5 cm 4.2 - 5.9 / 3.9 - 5.3 cm LV Systolic Diameter MM 1.4 cm LV Ejection Fraction MM Teich 78.2 % IVS Diastolic Thickness MM 0.8 cm 0.6 - 1.0 / 0.6 - 0.9 cm IVS Systolic Thickness MM 0.8 cm LVPW Diastolic Thickness MM 0.6 cm 0.6 - 1.0 / 0.6 - 0.9 cm LVPW Systolic Thickness MM 0.9 cm Aortic Annulus Diameter 4.1 cm LA Ao Ratio MM 0.9 MV E Point Septal Separation 0.7 cm DOPPLER AV Peak Velocity 155.0 cm/s LVOT Peak Velocity 111.0 cm/s AV Area Cont Eq vti 2.5 cm squared AV Area Cont Eq pk 2.4 cm squared MV Area PHT 2.4 cm squared Mitral E to A Ratio 0.8 MV E' Velocity 8.0 cm/s Mitral E to MV E' Ratio 7.2 Mitral E to LV E' Lateral Ratio 8.0 Mitral E to LV E' Septal Ratio 6.6 TR Peak Velocity 313.0 cm/s TR Peak Gradient 39.2 mmHg TR Mean Velocity 238.5 cm/s TR Mean Gradient 24.6 mmHg TR Velocity Time Integral 99.4 cm TV Peak E Velocity 62.0 cm/s Right Atrial Pressure 3.0 mmHg Pulmonary Artery Systolic Pressu 42.2 mmHg PV Peak Velocity 70.0 cm/s RV Acceleration Time 0.1 s RV Ejection Time 0.3 s RV AcT/ET 0.3 FINDINGS Left Ventricle Normal left ventricular cavity size. Normal left ventricular systolic function. Left ventricular ejection fraction is estimated at 65 %. No regional wall motion abnormalities. Normal diastolic function. Right Ventricle Normal right ventricular size and systolic function, RVSP 45 mmHg. Right Atrium Normal right atrial size. Left Atrium Normal left atrial size. Mitral Valve Structurally normal mitral valve. Trace mitral valve regurgitation. Aortic Valve Aortic valve not well visualized. No aortic valve stenosis. No aortic valve regurgitation. Tricuspid Valve Tricuspid valve not well visualized. Mild to moderate tricuspid valve regurgitation. Pulmonic Valve Pulmonic valve not well visualized. Pericardium No pericardial effusion. Aorta Normal-sized aortic root. CONCLUSIONS 1. Normal left ventricular cavity size and systolic function. Left ventricular ejection fraction is estimated at 65 %. No regional wall motion abnormalities. Normal diastolic function. 2. Normal right ventricular size and systolic function. 3. Mild pulmonary hypertension with pulmonary artery artery pressure estimated at 45 mmHg. 4. Mild to moderate tricuspid valve regurgitation. 5. When compared to previous echocardiogram dated 04/10/2019, there may not have been any significant change. Karis Perez MD (Electronically Signed) Final Date: 02 May 2020 15:07 S
[2020-05-02] MEDS: donepezil 5 MG Tablet 10 MG PO (08:56)
[2020-05-02] MEDS: sodium chloride 0.9% 1,000 ML 75 ML IV (08:56)
--- NOTE | 2020-05-02 12:52 | PC.CHAP ---
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 [] Patient/Family/Request visit [] Outpatient visit [] Follow-up visit [] Physician referral [] Code/Alert [] Routine visit [] Staff referral [] Actively dying [] Patient sleeping [] Family support [] [] Out of room [] Palliative care [] [] Receiving care in room [] Pre-surgical visit [] Trauma [] Long length of stay [] ICU visit [x] Other: Isolation Relational/Emotional Strength [] Patient feels connected with others/family/visitors/staff [] Distress [] Loneliness/isolation [] Abandonment Spirituality of Patient [] Person of Marcela [] Attends Confucianist of their Marcela [] Believes in Prayer [] Reads Bible or Uatsdin materials [] There are Spiritual issues to be addressed Box Maker Interventions [] Prayer [] Active listening [] Non-anxious presence [] Spiritual/emotional support [] Crisis/trauma care [] Spiritual counseling [] Bereavement support [] Provided bereavement packet [] Provided Bible/devotional materials [] Provided toy/stuffed animal, coloring book to patient or family member [] Provided Communion [] Anointing/[place] [] Salvation [] Completed spiritual assessment [] Other: Impact on Illness or Injury [] Angry [] Fearful [] Anxious [] Often cries [] Exhaustion [] Unable to work [] Unable to attend jain [] Unable to walk/stand [] Unable to read [] Unable to drive [] Unable to eat/drink [] Unable to sleep [] Unable to be with family [] Patient intubated [] Other: Summary Isolation Time spent with patient 5 mins
--- NOTE | 2020-05-02 14:29 | P.DS_ITS ---
Discharge Providers Date of Admission: 05/01/20 16:54 Date of Discharge: May 02, 2020 Attending Provider at Admission: Bony Carlos MD Attending Provider at Discharge: Bony Carlos MD Primary Care Provider: HE Rangel Diagnoses at Discharge Discharge Diagnosis (1) Dizziness: Status: Acute Problem details: Improved (2) Bradycardia: Status: Acute Problem details: No concerning bradycardia noted. Does have intraventricular conduction delay, occasional PVCs. No concerning tachyarrhythmias. Not candidate for beta- donavan secondary to occasional bradycardia. Magnesium level normal. (3) Pneumonia: Status: Acute Problem details: CT abnormality noted. Consider repeat CT in 4 weeks. 7-day course of Levaquin. (4) COPD exacerbation: Status: Acute (5) Tobacco dependency: Status: Acute (6) Anemia: Status: Acute Reason for Visit Reason for Visit: DIZZY, CHEST PAIN Hospital Course Hospital Course: Hina is a 74-year-old white female who presented to the hospital with occasional dizziness. This is been a long-term intermittent probl em for the patient. There was also some question of chest discomfort although the patient and family could not relate this to me. While in the ER she received a CTA, to rule out pulmonary embolism. This was negative for pulmonary embolism but demonstrated multilobar infiltrates so she was admitted for observation to rule out decompensation secondary to pneumonia. She was placed on Levaquin. Overnight the patient remained stable. She did not require oxygen. Vital signs were stable. Telemetry indicated occasional bradycardia, usually while sleeping and occasional PVCs but no significant tachyarrhythmias or pauses. Magnesium level was checked and normal. The following day it was thought the patient could be discharged home on oral Levaquin, consideration for follow-up CT scan in 4 weeks, referral to cardiology. Troponin was negative while in the hospital. Also of note, COVID was negative. Echocardiogram was preformed and final result pending prior to discharge. Physical Exam Narrative: EXAM NARRATIVE: Exam no apparent distress Cardiovascular regular rate and rhythm without murmur Lungs clear Abdomen is soft positive bowel sounds Extremities no cyanosis clubbing or edema Discharge Data Data Completed and Pending: Completed Studies During Hospitalization Category Date Time Status CT angio chest PE protcl [id number] Stat Cat Scan 05/01/20 14:28 Completed XR chest 1V elizabeth ble [id number] Routine Exams 05/02/20 05:00 Completed XR chest 1V elizabeth ble [id number] Stat Exams 05/01/20 12:31 Completed Pending at discharge Category Date Time Status Immunochemical Fe juaquin OCB Routine Lab 05/01/20 18:31 Uncollected Sputum Culture an d Gram Stain Routi ne Lab 05/01/20 18:31 Uncollected CV echo complete* [id number] Routine Ultrasound 05/02/20 07:00 Taken Labs from last 24 hours 05/02/20 05/02/20 05/01/20 03:48 03:48 19:10 WBC 8.6 RBC 4.10 Hgb 11.6 Hct 37.5 MCV 91.5 MCH 28.3 MCHC 30.9 RDW 14.6 Plt Count 370 MPV 10.2 Neut % (Auto) 63.8 Lymph % (Auto) 25.9 Dyer % (Auto) 7.7 Eos % (Auto) 1.5 Baso % (Auto) 0.6 Neut # (Auto) 5.5 Lymph # (Auto) 2.2 Dyer # (Auto) 0.7 Eos # (Auto) 0.1 Baso # (Auto) 0.1 Nucleated RBC % (a uto) 0 Nucleated RBCs # 0.0 Sodium 139 Potassium 4.2 Chloride 98 Carbon Dioxide 28 Anion Gap 17.2 BUN 20 Creatinine 0.9 Glucose 89 Calculated Osmolal ity 284 L Calcium 9.2 Magnesium Iron TIBC % Saturation Unsat Iron Binding Ferritin Total Bilirubin 0.3 AST 18 ALT 7 Alkaline Phosphata se 96 Troponin I 6 Hour Troponin I Hi Sens Del Troponin T 120 Min [place] Troponin T Total Protein 7.8 Albumin 3.4 L Globulin 4.4 Vitamin B12 Folate > 20.0 Procalcitonin TSH Urine Color Urine Appearance Urine pH Ur Specific Gravit y Urine Protein Urine Glucose (UA) Urine Ketones Urine Blood Urine Nitrate Urine Bilirubin Urine Urobilinogen Ur Leukocyte Candis ase Influenza Type A A g Influenza Type B A g 05/01/20 05/01/20 05/01/20 19:10 19:10 17:29 WBC RBC Hgb Hct MCV MCH MCHC RDW Plt Count MPV Neut % (Auto) Lymph % (Auto) Dyer % (Auto) Eos % (Auto) Baso % (Auto) Neut # (Auto) Lymph # (Auto) Dyer # (Auto) Eos # (Auto) Baso # (Auto) Nucleated RBC % (a uto) Nucleated RBCs # Sodium Potassium Chloride Carbon Dioxide Anion Gap BUN Creatinine Glucose Calculated Osmolal ity Calcium Magnesium 2.1 Iron 30 L TIBC 219 % Saturation 13.6 L Unsat Iron Binding 189 Ferritin 152 H Total Bilirubin AST ALT Alkaline Phosphata se Troponin I 6 Hour 8.95 Troponin I Hi Sens Del -0.05 L Troponin T 120 Min [place] Troponin T Total Protein Albumin Globulin Vitamin B12 428 Folate Procalcitonin 0.05 TSH 0.51 Urine Color Urine Appearance Urine pH Ur Specific Gravit y Urine Protein Urine Glucose (UA) Urine Ketones Urine Blood Urine Nitrate Urine Bilirubin Urine Urobilinogen Ur Leukocyte Candis ase Influenza Type A A g Negative Influenza Type B A g Negative 05/01/20 05/01/20 15:22 14:16 WBC RBC Hgb Hct MCV MCH MCHC RDW Plt Count MPV Neut % (Auto) Lymph % (Auto) Dyer % (Auto) Eos % (Auto) Baso % (Auto) Neut # (Auto) Lymph # (Auto) Dyer # (Auto) Eos # (Auto) Baso # (Auto) Nucleated RBC % (a uto) Nucleated RBCs # Sodium Potassium Chloride Carbon Dioxide Anion Gap BUN Creatinine Glucose Calculated Osmolal ity Calcium Magnesium Iron TIBC % Saturation Unsat Iron Binding Ferritin Total Bilirubin AST ALT Alkaline Phosphata se Troponin I 6 Hour Troponin I Hi Sens Del Troponin T 120 Min [place] 8.90 Delta Troponin T -0.10 L Total Protein Albumin Globulin Vitamin B12 Folate Procalcitonin TSH Urine Color Yellow Urine Appearance Clear Urine pH 7 Ur Specific Gravit y 1.015 Urine Protein Neg Urine Glucose (UA) Norm Urine Ketones Negative Urine Blood Neg Urine Nitrate Negative Urine Bilirubin Neg Urine Urobilinogen Neg Ur Leukocyte Candis ase Negative Influenza Type A A g Influenza Type B A g Vitals: Last Vital Signs Temp 98.2 F 05/02/20 12:00 Pulse 68 05/02/20 12:00 Resp 16 05/02/20 12:00 BP 121/71 05/02/20 12:30 Pulse Ox 97 05/02/20 12:30 Discharge Plan Discharge Patient Disposition: Home Health Service Condition: Stable Prescriptions: New levofloxacin [Levaquin] 750 mg tablet 750 mg PO DAILY 7 Days Qty: 7 RF: 0 aspirin [Adult Low Dose Aspirin] 81 mg tablet,delayed release (DR/EC) 81 mg PO DAILY Qty: 30 RF: 0 Continued nitroglycerin [Nitrostat] 0.4 mg tablet, sublingual 0.4 mg SUBLINGUAL ONCE Qty: 1 RF: 0 donepezil 10 mg Tablet 10 mg PO DAILY RF: 0 meclizine 25 mg tablet 25 mg PO BID PRN (Reason: Dizziness) RF: 0 Referrals: Yazmin Oshea, CHIEF PAYROLL CLERK-C [Primary Care Provider] - 4-7 days (Consider repeat CT scan in 4 weeks, noncontrast, for pulmonary abnormality) Discharge Diet: Usual diet Discharge Activity: Resume usual activity Activity Restrictions/Additional Instructions: Please arrange referral to cardiology in 2 weeks secondary to dizziness Discharge Attestations Time Spent in Discharge Care*: greater than 30 min Quality Metrics Clinical Quality Measures During this hospital stay, did patient experience: None Coding Level of Care Code Acute Log Tumbler for Andreina Pierson Diagnoses Dizziness R42 Bradycardia R00.1 Pneumonia J18.9 COPD exacerbation J44.1 Tobacco dependency F17.200 Anemia D64.9
[2020-05-02] MEDS: levoFLOXacin 750 mg Tablet PO (15:22)
--- NOTE | 2020-05-02 16:46 | PC.NURSE ---
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 Educated pt and dgtr on new meds actions, dosing, timing and frequency as well as possible side effects. Fall Prevention discuss to pt. Discharge papers provided to pt and dgtr. ushered pt via wheelchair to private vehicle.
--- NOTE | 2020-05-03 15:18 | PC.RESP ---
Smoking Cessation and Pulmonary Rehab information along with a schedule of classes sent to patient.
== END 2020-05-02 16:46 | disposition home health service (06) ==
LOC: ER 12:50 → CSU 17:19
PROVIDERS: Family Medicine; Admitting Provider Internal Medicine; Emergency Provider Emergency Medicine; PCP Nurse Practitioner; Visit Provider Internal Medicine
DX: R42 Dizziness and giddiness (principal); R00.1 Bradycardia, unspecified; J18.9 Pneumonia, unspecified organism; J44.1 Chronic obstructive pulmonary disease with (acute) exacerbation; F17.210 Nicotine dependence, cigarettes, uncomplicated; D64.9 Anemia, unspecified
CPT/HCPCS: 12345; 36415; 51701; 71045; 71275; 80053; 81003; 82607; 82728; 82746; 83540; 83550; 83735; 84145; 84443; 84484; 85025; 87635; 87804; 93005; 93306; 94640; 96361; 96365; 96366; 96368; 96372; 99284; 99285; G0378; J0456; J0696; J1650; J1956; J3535; J7030; J7050; Q9967

== ENCOUNTER → 2020-08-01 11:54 | Outpatient (BNVA) | payer MEDICARE, SELFPAY | PROVIDERS: PCP Nurse Practitioner; Visit Provider Nurse Practitioner Family | DX: R05 Cough (principal); M25.551 Pain in right hip; Z20.828 Contact with and (suspected) exposure to other viral communicable diseases | CPT/HCPCS: 71046; 73502; 87635 ==

== ENCOUNTER → 2020-11-30 11:42 | Outpatient (BNVA) | payer MEDICARE, SELFPAY | PROVIDERS: PCP Nurse Practitioner; Visit Provider Nurse Practitioner Family | DX: E55.9 Vitamin D deficiency, unspecified (principal); J44.9 Chronic obstructive pulmonary disease, unspecified; R09.02 Hypoxemia | CPT/HCPCS: 80053; 82306; 85025 ==

== ENCOUNTER → 2021-05-29 11:53 | Outpatient (BNVA) | payer MEDICARE, SELFPAY | PROVIDERS: PCP Nurse Practitioner; Visit Provider Nurse Practitioner Family | DX: F03.90 Unspecified dementia, unspecified severity, without behavioral disturbance, psychotic disturbance, mood disturbance, and anxiety (principal); E55.9 Vitamin D deficiency, unspecified; Z13.6 Encounter for screening for cardiovascular disorders; J44.9 Chronic obstructive pulmonary disease, unspecified; R42 Dizziness and giddiness | CPT/HCPCS: 80053; 80061; 82306; 82607; 84443; 85025 ==

== ENCOUNTER → 2021-06-26 15:30 | Outpatient (BNVA) | payer MEDICARE, SELFPAY | PROVIDERS: PCP Nurse Practitioner Family; Visit Provider Nurse Practitioner Family | DX: M25.561 Pain in right knee (principal); M25.461 Effusion, right knee | CPT/HCPCS: 73562 ==

== ENCOUNTER 2021-08-28 10:50 | Outpatient (CLI) | payer MEDICARE, SELFPAY ==
--- NOTE | 2021-08-28 11:00 | MR_ITS ---
WS: [id number] MRI RIGHT KNEE NONCONTRAST and CONTRAST TECHNIQUE: Axial PD, coronal PD fat sat, coronal PD, sagittal PD, and sagittal PD fat-sat images obta ined. Post gadolinium imaging was obtained. CLINICAL INFORMATION: M25.561 - Pain in right knee COMPARISON: Radiograph June 26, 2021 FINDINGS: No visualized lesion in the distal femur corresponding to the radiograph findings. Normal bone marrow signal in the distal femur and tibial plateau. Distal quadriceps and patella tendons are intact. Nor mal ACL and PCL. Hypertrophic patella. Small suprapatellar effusion with a small amount of debris. Sy novial thickening in the suprapatellar bursa. Complex tear anterior horn lateral meniscus extending to the articular surface. Normal medial meniscu s. Moderate degenerative narrowing involving the medial and lateral joint compartments with chondroma lacia. Moderate to advanced chondromalacia patella. Hypertrophic patella. Small lobulated popliteal c yst. Normal MCL and LCL. MR/MR knee RT wo/w con [id number] IMPRESSION: 1. No distal femoral lesions to correspond to the radiographic findings. Julia l bone marrow signal. 2. Normal ACL and PCL. 3. Complex tear involving the anterior horn lateral meniscus extending to the articular surface. 4. Moderate chondromalacia patella. 5. Small suprapatellar effusion with mild synovial thickening with some administration intern al debris. 6. Small lobulated popliteal cyst. 7. No other significant findings. Outbridge grading: grade III: partial-thickness cartilage loss with focal ulcer ation
[2021-08-28] MEDS: gadobenate dimeglumine 20 mL vial IV (12:23)
== END 2021-08-28 10:51 | disposition home or self-care (01) ==
LOC: RADSHAW 10:55
PROVIDERS: PCP Nurse Practitioner Family; Visit Provider Nurse Practitioner Family
DX: S83.281A Other tear of lateral meniscus, current injury, right knee, initial encounter (principal); X58.XXXA Exposure to other specified factors, initial encounter; M25.461 Effusion, right knee; M25.561 Pain in right knee; M71.21 Synovial cyst of popliteal space [Baker], right knee
CPT/HCPCS: 73723; A9577

== ENCOUNTER → 2021-09-05 14:02 | Outpatient (BNVA) | payer MEDICARE, SELFPAY | PROVIDERS: PCP Nurse Practitioner Family; Referring Provider Nurse Practitioner Family; Visit Provider Specialist | DX: M25.561 Pain in right knee (principal); M25.461 Effusion, right knee | CPT/HCPCS: 73560; 73565 ==

== ENCOUNTER → 2022-10-14 11:57 | Outpatient (BNVA) | payer MEDICARE, SELFPAY | PROVIDERS: PCP Nurse Practitioner Family; Visit Provider Nurse Practitioner Family | DX: F03.90 Unspecified dementia, unspecified severity, without behavioral disturbance, psychotic disturbance, mood disturbance, and anxiety (principal); E55.9 Vitamin D deficiency, unspecified; Z13.6 Encounter for screening for cardiovascular disorders; R42 Dizziness and giddiness; Z23 Encounter for immunization; G47.00 Insomnia, unspecified | CPT/HCPCS: 80053; 80061; 82306; 82607; 84443; 85025 ==

== ENCOUNTER → 2023-04-21 11:30 | Outpatient (BNVA) | payer MEDICARE, MEDICAID, SELFPAY | PROVIDERS: PCP Nurse Practitioner Family; Visit Provider Nurse Practitioner Family | DX: E55.9 Vitamin D deficiency, unspecified (principal); Z13.6 Encounter for screening for cardiovascular disorders; F03.90 Unspecified dementia, unspecified severity, without behavioral disturbance, psychotic disturbance, mood disturbance, and anxiety; R29.6 Repeated falls; E53.8 Deficiency of other specified B group vitamins; J44.9 Chronic obstructive pulmonary disease, unspecified; B88.8 Other specified infestations | CPT/HCPCS: 80053; 80061; 82306; 82607; 84443; 85025 ==

== ENCOUNTER → 2023-06-20 11:01 | Outpatient (BNVA) | payer MEDICARE, MEDICAID, SELFPAY | PROVIDERS: PCP Nurse Practitioner Family; Visit Provider Nurse Practitioner Family | DX: Z11.52 Encounter for screening for COVID-19 (principal) | CPT/HCPCS: 87426 ==

== ENCOUNTER → 2023-07-24 08:33 | Outpatient (BNVA) | payer MEDICARE, MEDICAID, SELFPAY | PROVIDERS: PCP Nurse Practitioner Family; Referring Provider Nurse Practitioner Family; Visit Provider Psychiatry & Neurology Neurology | DX: F03.90 Unspecified dementia, unspecified severity, without behavioral disturbance, psychotic disturbance, mood disturbance, and anxiety (principal) | CPT/HCPCS: 99203 ==

== ENCOUNTER 2023-08-25 15:04 | Outpatient (CLI) | payer MEDICARE, MEDICAID, SELFPAY ==
--- NOTE | 2023-08-25 15:15 | MR_ITS ---
WS: [id number] MRI BRAIN WITHOUT CONTRAST HISTORY: F03.90 - Unspecified dementia, unspecified severity, with... COMPARISON: 12/11/2016 TECHNIQUE: Diffusion imaging, multiplanar T1, T2 and FLAIR imaging obtained. No evidence for acute infarct or hemorrhage. Souza-white matter differentiation is normal. No acute or chronic infarct. Progression of atrophy and volume loss which is diffuse throughout the c erebrum since 2017. No significant cerebellar atrophy. Mild small vessel ischemic type changes are re identified. Mild bilateral hippocampal formation atrophy. Ventricular size has progressed since the prior study. Probably on the basis of atrophy. Very mild ectopia of the cerebellar tonsils. Increase in the amount of cervical lordosis. Dural venous sinuses and platinum of [place]ouch demonstrate no abnormality on this unenhanced studies. Paranasal sinuses: Moderate mucoperiosteal thickening in the sphenoid sinuses. No air-fluid levels. Mastoid air cells: Normal. Calvarium and scalp: Intact. IMPRESSION: 1. Mild progression of cerebral since the prior study. 2. No infarct or significant progression of small vessel ischemic disease. 3. Mild hippocampal formation atrophy is symmetric. 4. Progression of mild ventriculomegaly. Probably on the basis of atrophy. No evidence for normal pr essure hydrocephalus.
== END 2023-08-25 15:05 | disposition home or self-care (01) ==
LOC: RAD 15:04
PROVIDERS: PCP Nurse Practitioner Family; Visit Provider Psychiatry & Neurology Neurology
DX: F03.90 Unspecified dementia, unspecified severity, without behavioral disturbance, psychotic disturbance, mood disturbance, and anxiety (principal); G93.89 Other specified disorders of brain
CPT/HCPCS: 70551

== ENCOUNTER → 2023-10-06 14:11 | Outpatient (BNVA) | payer MEDICARE, MEDICAID, SELFPAY | PROVIDERS: PCP Nurse Practitioner Family; Visit Provider Psychiatry & Neurology Neurology | DX: F03.90 Unspecified dementia, unspecified severity, without behavioral disturbance, psychotic disturbance, mood disturbance, and anxiety (principal) | CPT/HCPCS: 99212 ==

== ENCOUNTER → 2024-07-08 09:42 | Outpatient (BNVA) | payer MEDICARE, MEDICAID, SELFPAY | PROVIDERS: PCP Nurse Practitioner Family; Visit Provider Psychiatry & Neurology Neurology | DX: F03.90 Unspecified dementia, unspecified severity, without behavioral disturbance, psychotic disturbance, mood disturbance, and anxiety (principal); E53.8 Deficiency of other specified B group vitamins; E55.9 Vitamin D deficiency, unspecified; D64.9 Anemia, unspecified; E87.1 Hypo-osmolality and hyponatremia | CPT/HCPCS: 99212 ==

== ENCOUNTER → 2025-02-07 14:19 | Outpatient (BNVA) | payer MEDICARE, MEDICAID, SELFPAY | PROVIDERS: PCP Nurse Practitioner Family; Visit Provider Psychiatry & Neurology Neurology | DX: F03.90 Unspecified dementia, unspecified severity, without behavioral disturbance, psychotic disturbance, mood disturbance, and anxiety (principal) | CPT/HCPCS: G0463 ==

== ENCOUNTER 2025-02-28 12:50 | Outpatient (CLI) | payer MEDICARE, MEDICAID, SELFPAY ==
--- NOTE | 2025-02-28 13:16 | CTR_ITS ---
PROCEDURE INFORMATION: Exam: CT Pelvis Without And With Contrast, Skeleton Exam date and time: 02/28/2025 1:49 PM Age: 79 years old Clinical indication: Hip pain; Prior surgery; Surgery date: 6+ months; Surgery type: Right femur; Pain in right hip, had a cortisol injection last week per skilled nursing. Not feeling any better TECHNIQUE: Imaging protocol: Computed tomography of the pelvis without and with contrast. Exam focused on the skeleton. Radiation optimization: All CT scans at this facility use at least one of these dose optimization techniques: automated exposure control; mA and/or kV adjustment per patient size (includes targeted exams where dose is matched to clinical indication); or iterative reconstruction. Contrast material: OMNI 350; Contrast volume: 100 ml; Contrast route: INTRAVENOUS (IV); COMPARISON: CR XR hip RT 2-3V wo/w pel* [id number] 08/01/2020 11:59 AM RADIATION DOSE METRICS: Total DLP (mGy-cm): 390.92 FINDINGS: Intestine: Diverticulosis without evidence of diverticulitis. Bones/joints: Calvin pins in the proximal right femur. Mild articular surface narrowing and spurring involving each femur. Soft tissues: Unremarkable. CT/CT pelvis wo/w con [id number] IMPRESSION: No acute findings.
[2025-02-28 13:43] LABS: Blood Urea Nitrogen 20 mg/dL (8-23)
[2025-02-28] MEDS: iohexol 350 mg/mL 500 mL Btl (per mL) IV (14:00)
== END 2025-02-28 12:51 | disposition home or self-care (01) ==
LOC: RAD 12:51
PROVIDERS: PCP Internal Medicine; Visit Provider Internal Medicine
DX: M25.551 Pain in right hip (principal); K57.30 Diverticulosis of large intestine without perforation or abscess without bleeding; Z98.890 Other specified postprocedural states; R93.7 Abnormal findings on diagnostic imaging of other parts of musculoskeletal system; M76.892 Other specified enthesopathies of left lower limb, excluding foot; M76.891 Other specified enthesopathies of right lower limb, excluding foot
CPT/HCPCS: 72194; 82565; 84520

== ENCOUNTER 2025-09-03 04:17 | Emergency (ER) | payer MEDICARE, MEDICAID, SELFPAY ==
--- OUTSIDE RECORDS SUMMARY | 2025-09-03 04:22 | XMS_ITS | Clinical Summary ---
Author Organization [facility] Address [address] [place] [address] Care Team Providers Care Tank Builder Name Role Phone Unavailable Primary Care Provider Unavailabl e Social History Tobacco Use Types Packs/Day Years Used Date Smoking Tobacco: Never Assessed Comments Unknown Sex and Gender Information Value Date Recorded Sex Assigned at Not on file Legal Sex Female 3:36 AM SCREED PERSON Gender Identity Not on file Sexual Orientation Not on file Plan of Treatment Health Maintenance Due Date Last Done Comments DTAP/TDAP/TD VACCINES (1 - Tdap) 1963 PNEUMOCOCCAL VACCINE 50+ YEARS (1 of 1 - PCV) 07/11/19 94 ZOSTER VACCINE (1 of 2) 1994 OSTEOPOROSIS SCREENING 2009 RSV VACCINE (60+ or ) (1 - 1-dose 75+ series) 2019 INFLUENZA VACCINE (#1) 2025
[2025-09-03 04:28] VITALS: BP 136/66; PULSE 72; RESP 20; TEMP 36.5; O2SAT 95; BMI 24.2
--- NOTE | 2025-09-03 04:37 | W.ED.FALL ---
Documented by User: Ankit Lakhani DO 09/03/25 16:33 HPI - Fall General: Chief Complaint: Fall Stated Complaint: Fall Time Seen by Provider: 09/03/25 04:36 History of Present Illness: Patient is an elderly individual who presents after a fall with head injury. The patient reports hitting their head and points to the area of impact, left occipital. Patient confirms head pain at the site of injury. The patient appears to have limited recall of the event, stating I guess and I don't know when asked if they got out of bed to use the restroom prior to the fall. Patient is unable to identify what object they hit their head on. The area appears visibly sore upon examination. Patient denies neck pain. Related Data Home Medications ?Medication ?Instructions ?Recorded ?Confirmed memantine 10 mg tablet 10 mg PO BID 02/07/25 02/07/25 Previous Rx's ?Medication ?Instructions ?Recorded cyanocobalamin (vitamin B-12) See Rx Instructions .Route 06/19/23 1,000 mcg/mL injection solution .COMPLEX #1 mL donepezil 23 mg tablet See Rx Instructions .Route 06/19/23 .COMPLEX #30 tabs Allergies Allergy/AdvReac Type Severity Reaction Status Date / Time No Known Allergies Allergy Verified 12/13/24 10:17 PFS ED PFSH: Medical History (Updated 09/03/25 @ 09:44 by Kade Harper DO) Vitamin D deficiency LBBB (left bundle branch block) Anxiety and depression Tobacco dependency Dementia GERD (gastroesophageal reflux disease) COPD (chronic obstructive pulmonary disease) Surgical History History of hip surgery History of salpingo-oophorectomy History of lung surgery Social History Smoking and tobacco/nicotine status: former use of tobacco/nicotine Second hand smoke exposure: Yes Alcohol intake: never Substance/Drug Use: never Adopted: No Caregiver/support person: No Lives independently: Yes Household members: spouse Housing: House Marital status: Number of children: 3 service: No Current occupational status: retired Do you think of yourself as: Straight/Heterosexual Current gender identity: Female Special nagi needs: No Agree to transfusion: Yes Physical Exam Const: COMMON NORMALS: alert ORIENTATION/CONSCIOUSNESS: Yes oriented to person HENMT: COMMON NORMALS: normocephalic HEAD & SCALP: normocephalic, hematoma and laceration (2.5cm) Eye: COMMON NORMALS: Equal, round and reactive pupils present and EOMs intact bilaterally PUPIL: Yes Equal, round and reactive pupils present Neck/C-Spine: CERVICAL SPINE: Yes cervical ROM normal and No Cervical spine tenderness Chest: CHEST: Yes Symmetrical chest wall rise Resp: COMMON NORMALS: clear to auscultation bilaterally EFFORT & INSPECTION: Yes symmetric chest movement AUSCULTATION: clear to auscultation bilaterally Cardio: COMMON NORMALS: regular rate and regular rhythm RATE: regular rate RHYTHM: regular rhythm GI: INSPECTION: No abdominal distension PALPATION: No Tenderness to palpation present (GI) Neuro: VIKI COMA SCALE: document GCS findings [place] coma scale eye opening: Spontaneous [place] coma scale verbal response: Confused Viki coma scale motor response: Obey commands [place] coma scale total score: 14 SENSORIUM/ORIENTATION: Yes alert and Yes oriented to person COORDINATION/BALANCE: [id number] test normal SPEECH: no expressive aphasia and no receptive aphasia GAIT: Yes Shuffling gait present (but walks without assistance) SENSORY EXAM: Yes extremities (intact) MOTOR EXAM: Normal motor muscle tone present throughout COORDINATION: [id number] test normal Procedures Laceration Laceration 1: Site: scalp Side (If applicable): left Size (cm): 2.5 Description: linear Depth: simple, single layer Local Anesthetic: lidocaine 1% and with epi Amount of anesthesia used (mL): 3 Pre-repair: wound explored, irrigated extensively and deep structures intact Skin layer closed with: other (aretha) Number of sutures: 3 Technique: simple, interrupted Course Vital Signs: Vital signs: Vital Signs Temperature 97.7 F 09/03/25 04:28 Pulse Rate 68 09/03/25 10:41 Respiratory Rate 20 H 09/03/25 04:28 Blood Pressure 112/74 09/03/25 10:41 Pulse Oximetry 98 09/03/25 10:41 Oxygen Delivery Me thod Room Air 09/03/25 06:36 MDM - Fall Medical Decision Making Patient has a small 2.5 cm laceration of the left occipital area. There is surrounding hematoma. It is clean, 3 aretha were placed with good closure. Bleeding is controlled. CT of the head shows a mass effect on the left ventricle in this area. It does not appear to be hemorrhage. It may be a mass versus a subacute stroke. MRI is suggested. We will have MRI availability momentarily. MRI has been ordered. Laboratory has been ordered. She will be checked out of Dr. Harper at shift change. Aretha will have to be removed and replaced for MRI. Care assumed at change of shift. Cerrillos removed wound reapproximated using care to pull skin edges together. MRI pending. MRI is resulted, showing a mass concerning for neoplasm in the left occipital lobe. We discussed findings with the patient's son, who is her medical decision maker. he requests conservative management with supportive cares only at this point. She is otherwise stable for discharge back to the nursing facility. Outpatient follow up for staple removal, further treatment to be discussed at that point. Lab Data 09/03/25 06:24 09/03/25 06:[address] 09/03/25 04:47 IMPRESSION: Asymmetric hypoattenuation in the left occipital lobe with mild mass effect on the left lateral ventricle, concerning for age-indeterminate infarct versus mass with surrounding edema. Recommend correlation with MRI with and without contrast. COMMENTS: THIS REPORT CONTAINS FINDINGS THAT MAY BE CRITICAL TO PATIENT CARE. The exam findings were verbally communicated by me to ANKIT LAKHANI via telephone conference at 6:05 AM CDT on 09/03/2025. The findings were acknowledged and understood. Head MRI 09/03/25 06:10 IMPRESSION: Heterogenously enhancing left occipital lobe mass concerning for primary neoplasm versus metastases. Underlying atrophy and senescent changes. ADDENDUM: 09/03/25 0906 The order has been updated. Laboratory Results WBC 8.52 10^3/uL (3.29-11.43) 09/03/25 06:24 RBC 3.72 10^6/uL (3.85-5.65) L 09/03/25 06:24 Hgb 10.70 g/dL (11.27-16.99) L 09/03/25 06:24 Hct 34.3 % (36-47) L 09/03/25 06:24 MCV 92.2 fl (85-98) 09/03/25 06:24 MCH 28.8 pg (27-33) 09/03/25 06:24 MCHC 31.2 g/dL (30-55) 09/03/25 06:24 RDW 19.0 % (12.1-15.1) H 09/03/25 06:24 Plt Count 144 10^3/cmm (157-399) L 09/03/25 06:24 MPV 9.9 fL (7.4-10.4) 09/03/25 06:24 Neut % (Auto) 68.8 % 09/03/25 06:24 Lymph % (Auto) 15.7 % 09/03/25 06:24 Callahan % (Auto) 13.6 % 09/03/25 06:24 Eos % (Auto) 0.7 % 09/03/25 06:24 Baso % (Auto) 0.5 % 09/03/25 06:24 Neut # (Auto) 5.86 10^3/uL (1.8-7.7) 09/03/25 06:24 Lymph # (Auto) 1.3 10^3/uL (0.8-4.8) 09/03/25 06:24 Callahan # (Auto) 1.2 10^3/uL (0.2-0.9) H 09/03/25 06:24 Eos # (Auto) 0.1 10^3/uL (0.0-0.8) 09/03/25 06:24 Baso # (Auto) 0.0 10^3/uL (0.0-0.1) 09/03/25 06:24 Nucleated RBC % (auto) 0 % 09/03/25 06:24 Nucleated RBCs # 0.0 /100WBC 09/03/25 06:24 Sodium 137 mmol/L (136-145) 09/03/25 06:24 Potassium 4.3 mmol/L (3.5-5.1) 09/03/25 06:24 Chloride 100 mmol/L (98-107) 09/03/25 06:24 Carbon Dioxide 27 mmol/L (22-29) 09/03/25 06:24 Anion Gap 14.3 (5-19) 09/03/25 06:24 BUN 12 mg/dL (8-23) 09/03/25 06:24 Creatinine 0.7 mg/dL (0.5-0.9) 09/03/25 06:24 GFR Calculation Not Reportable 09/03/25 06:24 Glucose 101 mg/dL (65-115) 09/03/25 06:24 Calculated Osmolality 284 mOsm/kg (285-295) L 09/03/25 06:24 Lactic Acid 1.0 mmol/L (0.5-2.2) 09/03/25 06:24 Calcium 8.8 mg/dL (8.5-10.5) 09/03/25 06:24 Total Bilirubin 0.5 mg/dL (0.15-1.2) 09/03/25 06:24 AST 21 U/L (0-32) 09/03/25 06:24 ALT 11 U/L (0-33) 09/03/25 06:24 Alkaline Phosphatase 101 U/L (35-105) 09/03/25 06:24 Total Protein 7.2 g/dL (6.6-8.7) 09/03/25 06:24 Albumin 3.5 g/dL (3.5-5.2) 09/03/25 06:24 Globulin 3.7 g/dL (1.3-4.6) 09/03/25 06:24 Urine Color Yellow (Yellow) 09/03/25 09:10 Urine Appearance Clear (CLEAR) 09/03/25 09:10 Urine pH 8.0 (5-7) A 09/03/25 09:10 Ur Specific Eaton 1.013 (1.005-1.030) 09/03/25 09:10 Urine Protein Negative (Negative) 09/03/25 09:10 Urine Glucose (UA) Negative (Normal) 09/03/25 09:10 Urine Ketones Negative (Negative) 09/03/25 09:10 Urine Blood Negative (Negative) 09/03/25 09:10 Urine Nitrate Negative (Negative) 09/03/25 09:10 Urine Bilirubin Negative (Negative) 09/03/25 09:10 Urine Urobilinogen 0.2 mg/dL (Negative) 09/03/25 09:10 Ur Leukocyte Esterase 1+ (Negative) A 09/03/25 09:10 Urine RBC 0-2 /hpf (0-2) 09/03/25 09:10 Urine WBC 21-50 /hpf (0-5) H 09/03/25 09:10 Ur Squamous Epith Cells 0-5 /hpf (0-5) 09/03/25 09:10 Amorphous Sediment Not Reportable 09/03/25 09:10 Urine Bacteria None seen /hpf (NONE) 09/03/25 09:10 Hyaline Casts 0.40 /lpf 09/03/25 09:10 All radiology interpretation(s) finalized by discharge Discharge Plan Discharge Patient Disposition: Home Clinical Impression: Brain mass, Dementia, Contusion of scalp, Laceration of scalp Condition: Stable Prescriptions: No Action donepezil 23 mg tablet See Rx Instructions .ROUTE .COMPLEX Qty: 30 0RF Dose Instruction: Take 1 tablet by mouth once daily Rx Instructions: Take 1 tablet by mouth once daily cyanocobalamin (vitamin B-12) 1,000 mcg/mL solution See Rx Instructions .ROUTE .COMPLEX Qty: 1 0RF Dose Instruction: INJECT 1ML INTRAMUSCULARLY DIRECTED EVERY 2 WEEKS FOR 2 DOSES THEN MONTHLY Rx Instructions: INJECT 1ML INTRAMUSCULARLY monthly memantine 10 mg tablet 10 mg PO BID Discharge Orders: Discharge ED (Routine); Ordered 09/03/25 Ordered By: Kade Harper Referrals: Brant Abraham DO [Primary Care Provider, Internal Medicine] - 4-7 days Patient Instructions: Scalp Laceration, Scalp Contusion in Adults (ED), Opioid Safety, Pain Management, Patient Portal & Jd Instructions Activity Restrictions/Additional Instructions: Thank you for choosing [facility] [place] for your healthcare needs today. It is very important that you follow up as instructed or that you return to the Emergency Department should you have concerns or if your condition changes or worsens in any way. Emergency department visits are focused on emergent conditions, in some cases you may require further evaluation on an outpatient basis. You were seen in the emergency room after a fall. Aretha were placed to repair the laceration of the scalp that should be removed in 7 to 10 days. 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 We discussed with your son he asked that we continue supportive cares for you. Will discharge back to the assisted your primary care doctor can make further recommendations. (Please note that included in your discharge packet is information concerning opioid safety and pain management. This information is given to all patients were discharged from the ER regardless of their discharge diagnosis or the medicines they usually take or are prescribed.) Print Language: Kinyarwanda Sign Out Sign Out Data: Patient Sign Out occurred on 09/03/25 at 06:36. Patient's care was discussed, and care was transferred from Ankit Lakhani DO to Kade Harper DO. Coding Level of Care Code ED Machinist Instructor for Chg Fwd Documented by User: Kade Harper DO 09/03/25 07:16 HPI - Fall General: Chief Complaint: Fall Stated Complaint: Fall Time Seen by Provider: 09/03/25 04:36 Related Data Home Medications ?Medication ?Instructions ?Recorded ?Confirmed memantine 10 mg tablet 10 mg PO BID 02/07/25 02/07/25 Previous Rx's ?Medication ?Instructions ?Recorded cyanocobalamin (vitamin B-12) See Rx Instructions .Route 06/19/23 1,000 mcg/mL injection solution .COMPLEX #1 mL donepezil 23 mg tablet See Rx Instructions .Route 06/19/23 .COMPLEX #30 tabs Allergies Allergy/AdvReac Type Severity Reaction Status Date / Time No Known Allergies Allergy Verified 12/13/24 10:17 PFSH ED PFSH: Medical History (Updated 09/03/25 @ 09:44 by Kade Harper DO) Vitamin D deficiency LBBB (left bundle branch block) Anxiety and depression Tobacco dependency Dementia GERD (gastroesophageal reflux disease) COPD (chronic obstructive pulmonary disease) Surgical History History of hip surgery History of salpingo-oophorectomy History of lung surgery Social History Smoking and tobacco/nicotine status: former use of tobacco/nicotine Second hand smoke exposure: Yes Alcohol intake: never Substance/Drug Use: never Adopted: No Caregiver/support person: No Lives independently: Yes Household members: spouse Housing: House Marital status: Number of children: 3 service: No Current occupational status: retired Do you think of yourself as: Straight/Heterosexual Current gender identity: Female Special nagi needs: No Agree to transfusion: Yes Course Vital Signs: Vital signs: Vital Signs Temperature 97.7 F 09/03/25 04:28 Pulse Rate 68 09/03/25 10:41 Respiratory Rate 20 H 09/03/25 04:28 Blood Pressure 112/74 09/03/25 10:41 Pulse Oximetry 98 09/03/25 10:41 Oxygen Delivery Me thod Room Air 09/03/25 06:36 MDM - Fall Medical Decision Making Patient has a small 2.5 cm laceration of the left occipital area. There is surrounding hematoma. It is clean, 3 aretha were placed with good closure. Bleeding is controlled. CT of the head shows a mass effect on the left ventricle in this area. It does not appear to be hemorrhage. It may be a mass versus a subacute stroke. MRI is suggested. We will have MRI availability momentarily. MRI has been ordered. Laboratory has been ordered. She will be checked out of Dr. Harper at shift change. Aretha will have to be removed and replaced for MRI. Care assumed at change of shift. Cerrillos removed wound reapproximated using care to pull skin edges together. MRI pending. Lab Data 09/03/25 06:24 09/03/25 06:[address] 09/03/25 04:47 IMPRESSION: Asymmetric hypoattenuation in the left occipital lobe with mild mass effect on the left lateral ventricle, concerning for age-indeterminate infarct versus mass with surrounding edema. Recommend correlation with MRI with and without contrast. COMMENTS: THIS REPORT CONTAINS FINDINGS THAT MAY BE CRITICAL TO PATIENT CARE. The exam findings were verbally communicated by me to ANKIT LAKHANI via telephone conference at 6:05 AM CDT on 09/03/2025. The findings were acknowledged and understood. Head MRI 09/03/25 06:10 IMPRESSION: Heterogenously enhancing left occipital lobe mass concerning for primary neoplasm versus metastases. Underlying atrophy and senescent changes. ADDENDUM: 09/03/25 0906 The order has been updated. Laboratory Results WBC 8.52 10^3/uL (3.29-11.43) 09/03/25 06:24 RBC 3.72 10^6/uL (3.85-5.65) L 09/03/25 06:24 Hgb 10.70 g/dL (11.27-16.99) L 09/03/25 06:24 Hct 34.3 % (36-47) L 09/03/25 06:24 MCV 92.2 fl (85-98) 09/03/25 06:24 MCH 28.8 pg (27-33) 09/03/25 06:24 MCHC 31.2 g/dL (30-55) 09/03/25 06:24 RDW 19.0 % (12.1-15.1) H 09/03/25 06:24 Plt Count 144 10^3/cmm (157-399) L 09/03/25 06:24 MPV 9.9 fL (7.4-10.4) 09/03/25 06:24 Neut % (Auto) 68.8 % 09/03/25 06:24 Lymph % (Auto) 15.7 % 09/03/25 06:24 Callahan % (Auto) 13.6 % 09/03/25 06:24 Eos % (Auto) 0.7 % 09/03/25 06:24 Baso % (Auto) 0.5 % 09/03/25 06:24 Neut # (Auto) 5.86 10^3/uL (1.8-7.7) 09/03/25 06:24 Lymph # (Auto) 1.3 10^3/uL (0.8-4.8) 09/03/25 06:24 Callahan # (Auto) 1.2 10^3/uL (0.2-0.9) H 09/03/25 06:24 Eos # (Auto) 0.1 10^3/uL (0.0-0.8) 09/03/25 06:24 Baso # (Auto) 0.0 10^3/uL (0.0-0.1) 09/03/25 06:24 Nucleated RBC % (auto) 0 % 09/03/25 06: Nucleated RBCs # 0.0 /100WBC 09/03/25 06:24 Sodium 137 mmol/L (136-145) 09/03/25 06:24 Potassium 4.3 mmol/L (3.5-5.1) 09/03/25 06:24 Chloride 100 mmol/L (98-107) 09/03/25 06:24 Carbon Dioxide 27 mmol/L (22-29) 09/03/25 06:24 Anion Gap 14.3 (5-19) 09/03/25 06:24 BUN 12 mg/dL (8-23) 09/03/25 06:24 Creatinine 0.7 mg/dL (0.5-0.9) 09/03/25 06:24 GFR Calculation Not Reportable 09/03/25 06:24 Glucose 101 mg/dL (65-115) 09/03/25 06:24 Calculated Osmolality 284 mOsm/kg (285-295) L 09/03/25 06:24 Lactic Acid 1.0 mmol/L (0.5-2.2) 09/03/25 06:24 Calcium 8.8 mg/dL (8.5-10.5) 09/03/25 06:24 Total Bilirubin 0.5 mg/dL (0.15-1.2) 09/03/25 06:24 AST 21 U/L (0-32) 09/03/25 06:24 ALT 11 U/L (0-33) 09/03/25 06:24 Alkaline Phosphatase 101 U/L (35-105) 09/03/25 06:24 Total Protein 7.2 g/dL (6.6-8.7) 09/03/25 06:24 Albumin 3.5 g/dL (3.5-5.2) 09/03/25 06:24 Globulin 3.7 g/dL (1.3-4.6) 09/03/25 06:24 Urine Color Yellow (Yellow) 09/03/25 09:10 Urine Appearance Clear (CLEAR) 09/03/25 09:10 Urine pH 8.0 (5-7) A 09/03/25 09:10 Ur Specific Eaton 1.013 (1.005-1.030) 09/03/25 09:10 Urine Protein Negative (Negative) 09/03/25 09:10 Urine Glucose (UA) Negative (Normal) 09/03/25 09:10 Urine Ketones Negative (Negative) 09/03/25 09:10 Urine Blood Negative (Negative) 09/03/25 09:10 Urine Nitrate Negative (Negative) 09/03/25 09:10 Urine Bilirubin Negative (Negative) 09/03/25 09:10 Urine Urobilinogen 0.2 mg/dL (Negative) 09/03/25 09:10 Ur Leukocyte Esterase 1+ (Negative) A 09/03/25 09:10 Urine RBC 0-2 /hpf (0-2) 09/03/25 09:10 Urine WBC 21-50 /hpf (0-5) H 09/03/25 09:10 Ur Squamous Epith Cells 0-5 /hpf (0-5) 09/03/25 09:10 Amorphous Sediment Not Reportable 09/03/25 09:10 Urine Bacteria None seen /hpf (NONE) 09/03/25 09:10 Hyaline Casts 0.40 /lpf 09/03/25 09:10 Discharge Plan Discharge Patient Disposition: Home Clinical Impression: Brain mass, Dementia, Contusion of scalp, Laceration of scalp Condition: Stable Prescriptions: No Action donepezil 23 mg tablet See Rx Instructions .ROUTE .COMPLEX Qty: 30 0RF Dose Instruction: Take 1 tablet by mouth once daily Rx Instructions: Take 1 tablet by mouth once daily cyanocobalamin (vitamin B-12) 1,000 mcg/mL solution See Rx Instructions .ROUTE .COMPLEX Qty: 1 0RF Dose Instruction: INJECT 1ML INTRAMUSCULARLY DIRECTED EVERY 2 WEEKS FOR 2 DOSES THEN MONTHLY Rx Instructions: INJECT 1ML INTRAMUSCULARLY monthly memantine 10 mg tablet 10 mg PO BID Discharge Orders: Discharge ED (Routine); Ordered 09/03/25 Ordered By: Kade Harper Referrals: Brant Abraham DO [Primary Care Provider, Internal Medicine] - 4-7 days Patient Instructions: Scalp Laceration, Scalp Contusion in Adults (ED), Opioid Safety, Pain Management, Patient Portal & Jd Instructions Activity Restrictions/Additional Instructions: Thank you for choosing [facility] [place] for your healthcare needs today. It is very important that you follow up as instructed or that you return to the Emergency Department should you have concerns or if your condition changes or worsens in any way. Emergency department visits are focused on emergent conditions, in some cases you may require further evaluation on an outpatient basis. You were seen in the emergency room after a fall. Aretha were placed to repair the laceration of the scalp that should be removed in 7 to 10 days. 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 We discussed with your son he asked that we continue supportive cares for you. Will discharge back to the assisted your primary care doctor can make further recommendations. (Please note that included in your discharge packet is information concerning opioid safety and pain management. This information is given to all patients were discharged from the ER regardless of their discharge diagnosis or the medicines they usually take or are prescribed.) Print Language: Kinyarwanda Sign Out Sign Out Data: Patient Sign Out occurred on 09/03/25 at 06:36. Patient's care was discussed, and care was transferred from Ankit Lakhani DO to Kade Harper DO. Coding Level of Care Code ED Machinist Instructor for Andreina Pierson
--- NOTE | 2025-09-03 04:47 | CTR_ITS ---
PROCEDURE INFORMATION: Exam: CT Head Without Contrast Exam date and time: 09/03/2025 4:51 AM Age: 80 years old Clinical indication: Injury or trauma; Blunt trauma (contusions or hematomas); EMS arrival from longterm for ground level fall with head strike. Small hematoma with laceration to left occipital. History of dementia. ; Additional info: Fall head inj TECHNIQUE: Imaging protocol: Computed tomography of the head without contrast. Radiation optimization: All CT scans at this facility use at least one of these dose optimization techniques: automated exposure control; mA and/or kV adjustment per patient size (includes targeted exams where dose is matched to clinical indication); or iterative reconstruction. COMPARISON: MR head wo con* [id number] 08/25/2023 3:37 PM RADIATION DOSE METRICS: Total DLP (mGy-cm): 809.58 FINDINGS: Brain: Asymmetric hypoattenuation in the left occipital lobe. No midline shift. No intracranial hemorrhage. No acute infarct. No extra-axial fluid collection. Cerebral ventricles: No ventriculomegaly. There is mass effect on the posterior horn of the left lateral ventricle in the area of occipital lobe swelling. Paranasal sinuses: Mucosal thickening at the right sphenoid sinus. No fluid levels. Mastoid air cells: Visualized mastoid air cells are well aerated. Bones: Unremarkable. No acute fracture. Soft tissues: Small scalp hematoma and laceration in the left occipital region. CT/CT head wo con* [id number] IMPRESSION: Asymmetric hypoattenuation in the left occipital lobe with mild mass effect on the left lateral ventricle, concerning for age-indeterminate infarct versus mass with surrounding edema. Recommend correlation with MRI with and without contrast. COMMENTS: THIS REPORT CONTAINS FINDINGS THAT MAY BE CRITICAL TO PATIENT CARE. The exam findings were verbally communicated by me to GLADYS LAKHANI via telephone conference at 6:05 AM CDT on 09/03/2025. The findings were acknowledged and understood.
[2025-09-03] MEDS: lidocaine-epi 1% 20 mL INJ INJECTION (04:54)
--- NOTE | 2025-09-03 06:10 | MRR_ITS ---
PROCEDURE INFORMATION: Exam: MR Head Without Contrast Exam date and time: 09/03/2025 7:53 AM Age: 80 years old Clinical indication: Injury or trauma; Fall; Blunt trauma (contusions or hematomas) and laceration; Loss of consciousness unknown; Without residual foreign body; Scalp; Altered mental status/memory loss; Confusion or disorientation; Additional info: Fall, head injury, left occipital lesion by CT TECHNIQUE: Imaging protocol: Magnetic resonance imaging of the head without contrast. COMPARISON: CT head wo con* [id number] 09/03/2025 4:51 AM FINDINGS: Brain: There is nonspecific increased T2/FLAIR hyperintensities in the periventricular and subcortical deep white matter likely on the basis of chronic microvascular ischemic changes. Additional area of more denser T2/FLAIR signal alteration in the left occipital lobe white matter measuring 4.7 x 3.1 cm. Moderate heterogenous enhancement. There are no areas of abnormal diffusion restriction to suggest acute infarct at this time. There is age-related diffuse brain parenchymal volume loss. No mass effect or midline shift. No abnormal extra-axial fluid collections. No acute intracranial hemorrhage. Cerebral ventricles: Prominence of the lateral ventricular system due to brain parenchymal volume loss. Bones: Unremarkable. Paranasal sinuses: Right sphenoid sinus mucosal thickening. Mastoid air cells: Normal as visualized. No mastoid effusion. Orbital cavities: Unremarkable. Soft tissues: Unremarkable. 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 Underlying atrophy and senescent changes.
[2025-09-03 06:32] LABS: Hematocrit 34.3 % (36-47); Hemoglobin 10.70 g/dL (11.27-16.99); Mean Corpuscular HGB Conc 31.2 g/dL (30-55); Mean Corpuscular Hemoglobin 28.8 pg (27-33); Mean Corpuscular Volume 92.2 fl (85-98); Nucleated Red Blood Cells % 0 %; Platelet Count 144 10^3/cmm (157-399); Red Blood Count 3.72 10^6/uL (3.85-5.65); White Blood Count 8.52 10^3/uL (3.29-11.43)
[2025-09-03 06:36] VITALS: BP 132/65; PULSE 74; O2SAT 96
[2025-09-03 06:49] LABS: Alanine Aminotransferase 11 U/L (0-33); Albumin Level 3.5 g/dL (3.5-5.2); Alkaline Phosphatase 101 U/L (35-105); Anion Gap 14.3 (5-19); Aspartate Amino Transferase 21 U/L (0-32); Blood Urea Nitrogen 12 mg/dL (8-23); Calcium 8.8 mg/dL (8.5-10.5); Carbon Dioxide 27 mmol/L (22-29); Chloride 100 mmol/L (98-107); Creatinine Clr Calc Pharmacy 54.6736; Globulin 3.7 g/dL (1.3-4.6); Glucose 101 mg/dL (65-115); Osmolality Calculated 284 mOsm/kg (285-295); Potassium 4.3 mmol/L (3.5-5.1); Sodium 137 mmol/L (136-145); Total Protein 7.2 g/dL (6.6-8.7)
[2025-09-03 06:50] LABS: Lactic Sepsis W/Reflex 1.0 mmol/L (0.5-2.2)
--- NOTE | 2025-09-03 07:16 | PC.NURSE ---
TREY REMOVED FOR PT MRI.
[2025-09-03] MEDS: gadobenate dimeglumine 20 mL vial IV (08:18)
--- NOTE | 2025-09-03 08:35 | ECG_ITS ---
[facility]25[facility] Pat Name: Hina Gomez Department: Room: Gender: Female [employer]: : 1945 Requested By: Ankit Vega Order Number: [id number] Luis Felipe MD: ELISE DAVENPORT Measurements Intervals [place] Rate: 63 P: 6 ID: 170 QRS: -43 QRSD: 142 T: 103 QT: 462 QTc: 473 Interpretive Statements SINUS RHYTHM WITH SINUS ARRHYTHMIA INTRAVENTRICULAR CONDUCTION DELAY [130+ ms QRS DURATION] INFERIOR MYOCARDIAL INFARCTION , OF INDETERMINATE AGE [40+ ms Q WAVE AND/OR ST/T ABNORMALITY IN II/aVF] Compared to ECG 05/01/2020 19:32:38 No significant changes Electronically Signed On 09-04-2025 22:27:00 CDT by ELISE DAVENPORT [id number]
[2025-09-03 09:20] LABS: Glucose Urine UA Negative (Normal); Nitrate Urine Negative (Negative); Specific Gravity, Urine 1.013 (1.005-1.030)
[2025-09-03 09:23] LABS: Add Urine Microscopic? YES
[2025-09-03 10:40] VITALS: BP 112/74; PULSE 68; O2SAT 99
[2025-09-03 10:41] VITALS: BP 112/74; PULSE 68; O2SAT 98
== END 2025-09-03 10:49 | disposition home or self-care (01) ==
PROVIDERS: Emergency Medicine; Emergency Provider Family Medicine; PCP Internal Medicine
DX: S01.01XA Laceration without foreign body of scalp, initial encounter (principal); G93.9 Disorder of brain, unspecified; F03.90 Unspecified dementia, unspecified severity, without behavioral disturbance, psychotic disturbance, mood disturbance, and anxiety; J44.9 Chronic obstructive pulmonary disease, unspecified; Z87.891 Personal history of nicotine dependence; W19.XXXA Unspecified fall, initial encounter
CPT/HCPCS: 12001; 70450; 70553; 80053; 81001; 83605; 85025; 87077; 87086; 87186; 93005; 99284; J7030; J9999